=== PATIENT | male | born 1985 | race Asian ===

== ENCOUNTER 2024-09-30 15:45 | Inpatient (IN) | payer MEDICAID ==
[~2024-09-30] VITALS: Ht 175.3 cm; Wt 93.2 kg
--- NOTE | 2024-09-30 15:55 | ELECTROCARDIOGRAPH REPORT ---
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 Alexey Arizmendi Measurements Intervals Sullivan Rate: 106 P: 74 CT: 138 QRS: 57 QRSD: 88 T: 6 QT: 352 QTc: 468 Interpretive Statements Sinus tachycardia Consider left ventricular hypertrophy Electronically Signed On 10-08-2024 18:42:[address] Alexey Arizmendi Please click the below link to view image of tracing.
--- NOTE | 2024-09-30 16:19 | Physician Documentation ---
History of Present Illness ~ Chief Complaint: Multiple Medical Complaints Stated Complaint: "RENAL" ISSUE Time Seen by MD: 15:57 HPI The patient presents as a transfer from [facility]. He is a 39-year-old male, history of CHF, and chronic kidney disease, who p resented to the ER with 3 days of feeling generally unwell, nausea and vomiting, and progressively worsening shortness of breath. He was hypotensive, 220/140. Labs show acute on chronic renal failure, creatinine 11. GFR 5. Potassium 4.3. BNP 1037. Baseline creatinine is around 2. He was started on a nicardipine drip for hypertensive emergency. He was transferred here for further treatment. Here in the ED, he states he is feeling somewhat better. He denies any significant shortness of breath at this time. He denies any flank pain or abdominal pain. He is in agreement with the admission. Medication Reconciliation Allergies: Coded Allergies: No Known Allergies (Unverified , 09/30/24) Review of Systems Constitutional: Denies: fever Gastrointestinal: Denies: abdominal pain Physical Exam Vital Signs: Temperature: 98.9, Source: Oral, Heart Rate: 113, Respiratory Rate: 16, BP: 174/109, Pulse Oximetry: 94, Weight: 93.180 Oxygen Flow Rate: 0 Physical Exam General: This is a young man, sitting calmly in bed, not in distress HEENT: Atraumatic, oropharynx appears dry Heart: Mild tachycardic, appears regular Lungs: normal work of breathing, normal oxygen saturation on room air Abdomen: Soft, nondistended, nontender all quadrants Fax: No CVA tenderness to percussion Extremities: Warm and well-perfused, no significant pitting edema Neuro: Alert and oriented, does not appear confused Psychiatric: Calm and cooperative with exam Progress Results/Orders Results/Orders Orders - IVAN REED MD Chest,Single View (09/30/24 15:52) Monitor (09/30/24 15:52) Saline Lock (09/30/24 15:52) Oxygen (09/30/24 15:52) Hs Troponin I W Calculations (09/30/24 17:52) Hs Troponin I W Calculations (09/30/24 18:52) Page Hospitalist (09/30/24 16:20) Completed Orders - IVAN REED MD Chest,Single View (09/30/24 15:52) Cbc/Diff (09/30/24 15:52) BMP (09/30/24 15:52) PBNP (09/30/24 15:52) Electrocardiogram (09/30/24 15:52) Hs Troponin I W Calculations (09/30/24 15:52) Medications Received in ER Medications (Trade) Dose Ordered Sig/Parmjit Route PRN Reason Start Time Stop Time Status Last Admin Dose Admin Nicardipine/ Sodium Chloride 200 ml @ 25 mls/hr Q8H IV 09/30/24 17:10 09/30/24 17:24 25 MLS/HR Vital Signs 09/30/24 09/30/24 09/30/24 15:47 17:12 17:12 Temp 98.9 Pulse 113 105 Resp 16 21 21 B/P (MAP) 174/109 179/123 (141) Pulse Ox 94 95 O2 Flow Rate 0 0 Laboratory Tests Test 09/30/24 15:54 White Blood Count 10.3 Red Blood Count 4.11 L Hemoglobin 11.0 L Hematocrit 32.4 L Mean Corpuscular Volume 79.0 Mean Corpuscular Hemoglobin 26.7 L Mean Corpuscular Hemoglobin Concent 33.8 Red Cell Distribution Width 13.6 Platelet Count 254 Mean Platelet Volume 7.1 L Neutrophils (%) (Auto) 75.0 Lymphocytes (%) (Auto) 16.4 L Monocytes (%) (Auto) 5.7 Eosinophils (%) (Auto) 2.1 Basophils (%) (Auto) 0.8 Neutrophils # (Auto) 7.7 Lymphocytes # (Auto) 1.7 Monocytes # (Auto) 0.6 Eosinophils # (Auto) 0.2 Basophils # (Auto) 0.1 CBC Comment Sodium Level 138 Potassium Level 4.5 Chloride Level 102 Carbon Dioxide Level 17.2 L Anion Gap 19 H Blood Urea Nitrogen 74 H Creatinine 11.06 H Estimated GFR/1.73 m2 5 BUN/Creatinine Ratio 6.7 L Glucose Level 113 H Calcium Level 8.3 L Troponin I High Sensitivity 53 Pro-B-Type Natriuretic Peptide 91966 H Albumin 3.0 L Chemistry Comments Consults/PCP Consults/PCP : Additional Comment Consult: I spoke to the internal medicine service, for admission in the hospital. They feel he is appropriate for the medical service. Consult: I spoke to Dr. Cain, nephrology. He recommends kidney ultrasound, D5 wi th bicarb for hydration, admission. He will consult. Medical Decision Making Additional info obtained from: old records Findings I reviewed the paperwork from the outside hospital regarding his recent ER visit. Additional Comments The patient will be admitted to the medicine service for further treatment of his renal failure and hypertensive emergency. Nephrology team will consult. Departure Impression: Primary Impression: Renal failure Additional Impression: Hypertensive emergency Referrals: NO PRIMARY CARE PROVIDER (PCP) Signature Scribe Signature: na Attestation: IVAN Garcia MD Sep 30, 2024 16:19
[2024-09-30 16:30] LABS: BASOPHILS # (AUTO) 0.1 X10'3 (0-0.2); BASOPHILS % (AUTO) 0.8 % (0-1); EOSINOPHILS # (AUTO) 0.2 X10'3 (0-0.9); EOSINOPHILS % (AUTO) 2.1 % (0-6); HEMATOCRIT 32.4 % (42.0-52.0); LYMPHOCYTES # (AUTO) 1.7 X10'3 (1.1-4.8); LYMPHOCYTES % (AUTO) 16.4 % (21-51); MEAN CORPUSCULAR HEMOGLOBIN 26.7 PG (27.0-31.0); MEAN CORPUSCULAR HGB CONC 33.8 g/dL (33.0-36.5); MEAN PLATELET VOLUME 7.1 FL (7.4-10.4); MONOCYTES # (AUTO) 0.6 X10'3 (0-0.9); MONOCYTES % (AUTO) 5.7 % (2-12); NEUTROPHILS # (AUTO) 7.7 X10'3 (1.8-7.7); PLATELET COUNT 254 X10'3 (140-440); RED BLOOD COUNT 4.11 X10'6 (4.70-6.10); RED CELL DISTRIBUTION WIDTH 13.6 % (11.5-14.5); WHITE BLOOD COUNT 10.3 X10'3 (4.5-11.0)
[2024-09-30 16:56] LABS: ANION GAP 19 (8-16); BLOOD UREA NITROGEN 74 MG/DL (7-18); BUN/CREATININE RATIO 6.7 (10.0-20.0); CALCIUM 8.3 MG/DL (8.5-10.1); CHLORIDE 102 MMOL/L (99-107); CREATININE 11.06 MG/DL (0.60-1.10); GLUCOSE 113 MG/DL (70-104); POTASSIUM 4.5 MMOL/L (3.5-5.1); PRO BRAIN NATRIURETIC PEPTIDE 17282 PG/ML (0-125); SODIUM 138 MMOL/L (135-145); TOTAL CARBON DIOXIDE 17.2 MMOL/L (24-32); eCRCL 9 ML/MIN; eGFR 5 ML/MIN
[2024-09-30] MEDS ORDERED: normal saline 1000ml 1,000 ML IV SCH (17:10)
[2024-09-30] MEDS ORDERED: magnesium Cl slow-release 64mg tablet PO PRN (17:10)
[2024-09-30] MEDS ORDERED: potassium Cl 40MEQ/1/2NS 520ml 520 ML IV PRN (17:10)
[2024-09-30] MEDS ORDERED: potassium Cl 20 mEq SR tablet PO PRN ×2 (17:10)
[2024-09-30] MEDS ORDERED: ondansetron/PF 4mg/2ml inj IV PRN (17:10)
[2024-09-30] MEDS ORDERED: magnesium sulf-water 2g/50mL 50 ML IV PRN (17:10)
[2024-09-30] MEDS ORDERED: acetaminophen 325mg tablet PO PRN ×2 (17:10)
[2024-09-30] MEDS ORDERED: magnesium sulf-water 4G/100mL 100 ML IV PRN (17:10)
[2024-09-30] MEDS: niCARDipine-NS 40mg/200ml IVPB 200 ML IV SCH (17:24)
--- NOTE | 2024-09-30 18:14 | HISTORY AND PHYSICAL-Residence ---
History & Physical Providers to CC Resident Creating Document: KARANAMISHJESSICA RES ~ History of Present Illness Reason for Admit\\Complaint: edgardo on ckd, htn , chf History of Present Illness 39-year-old male with history of congestive heart failure, CKD, hypertension is transferred to the ED from [facility] for higher level of care and management for hypertension, EDGARDO on CKD and CHF. He presented to the ED at [facility] with chief complaints of worsening shortness of breath, weakness in the fingers and feet since the past three days. He has associated chills, vomiting and dizziness. Denies significant chest pains, diaphoresis, nasal congestion, expectoration, palpitations. He has been having the above symptoms (shortness of breath) for the past eight months. Eight months ago he was diagnosed to have pneumonia at [facility], later seen at [place] where he was diagnosed to have CHF and chronic kidney disease with "15% kidney function". He states that he has been taking Lasix 40 t.i.d. since then and has been transitioned to Lasix 20 daily since the last one month. He does swell up with significant edema in the bilateral lower extremity, states he has lost significant amount of weight with Lasix. He is able to make good amount of urine. He has a systems technologist in [place] and a primary care and ek, last visit to PCP with two months ago and has been informed about his CKD and recommended to see a rouge mixer, he has been awaiting appointment to see a rouge mixer for the last couple of months and finally after long weight he had an appointment scheduled for the end of September. He is also hypertensive and takes Coreg. Was also taking losartan, but was discontinued and he developed neck swelling. Stopped smoking six years ago, does not drink alcohol no recreational drug use. Had an angiogram done eight months ago probably secondary to heart failure and was clean. Allergies: Coded Allergies: No Known Allergies (Unverified , 09/30/24) Past Medical History Past Medical History Hypertension CKD CHF Past Surgical History Surgical History Comment Coronary Angiogram ROS ROS Reviewed in full. All negative except for pertinent positive HPI. Exam Vitals: Vital Signs Date Time Temp Pulse Resp B/P (MAP) Pulse Ox O2 Delivery O2 Flow Rate FiO2 09/30/24 17:24 104 173/127 09/30/24 17:12 21 09/30/24 17:12 95 0 09/30/24 15:47 98.9 General: General: Awake and Alert, no acute distress. Currently Saturating well on room air. HEENT: Conjunctiva pink, Sclera clear, Mucus Membranes moist. Neck: Supple without masses and tenderness. Resp: Unlabored. Bilateral basal fine crackles. Heart: Regular rhythm, normal S1 and S2, no rub, murmur or gallop. Abdomen: Abdomen distended and tight, normal bowel sounds x4. No guarding or rigidity. Extremities: Normal ROM, no swelling, nontender. No cyanosis,clubbing or edema. 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 Skin: Warm and Dry. Diagnostic Data Last Recorded Lab Results: 09/30/24 1554 09/30/24 1554 Advance Care Planning Advanced Care plannin - 30 Minutes Additional Plan 39-year-old male with history of congestive heart failure, CKD, hypertension is transferred to the ED from [facility] for higher level of care and management for hypertension, EDGARDO on CKD and CHF. He presented to the ED at [facility] with chief complaints of worsening shortness of breath, weakness in the fingers and feet since the past three days. EDGARDO on CKD, creatinine 11.06 (unknown baseline creatinine) Elevated anion gap metabolic acidosis BUN 74, creatinine 11.06, GFR 5, anion gap 19 Currently saturating well on room air Started bicarb drip at 100 mL/hour Follow up with urine spot studies and renal ultrasound Follow up with [facility] and Nephrology consulted, appreciate recommendations Hypertensive emergency Has been transferred from [place] with a nicardipine drip, continue drip for now Home blood pressure medication Coreg CHF unknown EF BNP 83957, likely secondary to EDGARDO EKG shows sinus tachycardia, no ST/T-wave changes. Possible Left ventricular hypertrophy. He is fine crackles bilaterally, mild edema in the bilateral hands and abdomen is distended and tight no lower extremity edema. He is currently in significant EDGARDO with metabolic acidosis continue bicarb drip for now Reassess fluid status in a.m. History of hypertension History of CKD Awaiting med rec Code Status: Full code DVT prophylaxis: Heparin Analgesia/sedation: None Line/tube: PIV GI prophylaxis: None Nutrition: Renal diet Prognosis: Guarded Disposition: Continue medical management. Patient looks clinically and hemodynamically stable at this time, considering significant EDGARDO and elevated anion gap acidosis he is at high-risk and if condition deteriorates overnight he will need to be transferred to the ICU. Jessica Julio MD. IM Resident PGY-2 Date of Service: Sep 30, 2024 Billing Provider: BREONNA BARTON MD Common Visit Codes: [id number] INP/OBS CARE (HIGH) Secondary Visit Codes: [id number] CARE PLAN 30 MINUTES JESSICA JULIO RES Sep 30, 2024 18:14 BREONNA BARTON MD Sep 30, 2024 18:42
[2024-09-30] MEDS: sodium bicarbonate (8.4%) inj. 100 MEQ in dextrose 5%-water 1,000 ML IV SCH (18:37)
[2024-09-30 19:10] LABS: C-REACTIVE PROTEIN 1.2 MG/DL (0.0-0.5); THYROID STIMULATING HORMONE 2.35 ulU/ml (0.34-4.50)
[2024-09-30 19:16] LABS: ABG BASE EXCESS -8.2 mmol/L (-2.0-3.0); ABG HCO3 16.4 mmol/L (21.0-28.0); ABG OXYGEN SATURATION 93.8 % (94.0-98.0); ABG PCO2 (T) 30.9 mmHg (35.0-48.0); ABG PH (T) 7.343 (7.350-7.450); ABG PO2 (T) 76.6 mmHg (83.0-108.0); ALLEN'S TEST POSITIVE; FCOHb 0.3 % (0.5-1.5); FHHb 6.2 % (0.0-5.0); FMetHb 0.1 % (0.0-1.5); FO2Hb 93.4 % (94.0-98.0); MODE ROOM AIR
[2024-09-30] MEDS ORDERED: FURO20TA4 PO (19:19)
[2024-09-30] MEDS ORDERED: LOSA25TA41 PO (19:19)
[2024-09-30] MEDS ORDERED: CARV25TA2 PO (19:19)
[2024-09-30 19:30] LABS: URINE AMPHETAMINE SCREEN NEGATIVE (Neg); URINE BARBITUATE SCREEN NEGATIVE (Neg); URINE BENZODIAZEPINES SCREEN NEGATIVE (Neg); URINE CANNABINOID SCREEN POSITIVE (Neg); URINE COCAINE SCREEN NEGATIVE (Neg); URINE METHADONE SCREEN NEGATIVE (Neg); URINE OPIATE SCREEN NEGATIVE (Neg); URINE PHENCYCLIDINE SCREEN NEGATIVE (Neg)
[2024-09-30] MEDS: heparin, porcine 5000 units/ml vial SQ SCH (20:00)
[2024-09-30 21:00] VITALS: BP 168/102; PULSE 115; RESP 22; TEMP 97.6; O2SAT 95
[2024-09-30 22:00] VITALS: BP_SYST 152; BP_SYST 162; BP_DIAS 102; BP_DIAS 103; PULSE 128; RESP 29; TEMP 97.6; O2SAT 96
[2024-09-30] MEDS: lisinopril 20mg tablet PO ONE (22:18)
[2024-09-30] MEDS: amLODIPine 5mg tablet PO ONE (22:18)
[2024-09-30 23:00] VITALS: BP_SYST 138; BP_SYST 162; BP_DIAS 102; BP_DIAS 98
[2024-09-30 23:12] VITALS: RESP 29; O2SAT 96
[2024-10-01] VITALS (23 sets, daily range): BP systolic 129–162; BP diastolic 92–110; PULSE 90–114; RESP 12–20; TEMP 97.4–98.3; O2SAT 92–99
[2024-10-01] MEDS: hydrALAZINE 20mg/ml inj. IV PRN (00:31)
[2024-10-01 06:06] LABS: BASOPHILS # (AUTO) 0.1 X10'3 (0-0.2); BASOPHILS % (AUTO) 0.8 % (0-1); EOSINOPHILS # (AUTO) 0.2 X10'3 (0-0.9); EOSINOPHILS % (AUTO) 2.4 % (0-6); HEMOGLOBIN 9.5 g/dl (14.0-17.9); LYMPHOCYTES # (AUTO) 1.8 X10'3 (1.1-4.8); LYMPHOCYTES % (AUTO) 19.3 % (21-51); MEAN CORPUSCULAR HEMOGLOBIN 27.1 PG (27.0-31.0); MEAN CORPUSCULAR HGB CONC 33.8 g/dL (33.0-36.5); MEAN CORPUSCULAR VOLUME 80.1 FL (78-98); MEAN PLATELET VOLUME 7.1 FL (7.4-10.4); MONOCYTES # (AUTO) 0.6 X10'3 (0-0.9); MONOCYTES % (AUTO) 6.2 % (2-12); NEUTROPHILS # (AUTO) 6.7 X10'3 (1.8-7.7); NEUTROPHILS % (AUTO) 71.3 % (42-75); PLATELET COUNT 238 X10'3 (140-440); RED CELL DISTRIBUTION WIDTH 13.2 % (11.5-14.5); WHITE BLOOD COUNT 9.4 X10'3 (4.5-11.0)
[2024-10-01 06:21] LABS: ALANINE AMINOTRANSFERASE 14 U/L (12-78); ALBUMIN 2.6 G/DL (3.4-5.0); ALBUMIN/GLOBULIN RATIO 0.8 (1.1-1.5); ALKALINE PHOSPHATASE 65 IU/L (46-116); ANION GAP 16 (8-16); ASPARTATE AMINO TRANSFERASE 12 U/L (10-37); BILIRUBIN,TOTAL 0.4 MG/DL (0.1-1.0); BLOOD UREA NITROGEN 76 MG/DL (7-18); BUN/CREATININE RATIO 6.8 (10.0-20.0); CALCIUM 7.8 MG/DL (8.5-10.1); CHLORIDE 102 MMOL/L (99-107); CREATININE 11.23 MG/DL (0.60-1.10); GLUCOSE 113 MG/DL (70-104); POTASSIUM 4.1 MMOL/L (3.5-5.1); SODIUM 140 MMOL/L (135-145); TOTAL CARBON DIOXIDE 21.9 MMOL/L (24-32); eCRCL 9 ML/MIN; eGFR 5 ML/MIN
[2024-10-01] MEDS: amLODIPine 5mg tablet PO SCH (08:24)
[2024-10-01] MEDS: lisinopril 20mg tablet PO SCH (08:24)
--- NOTE | 2024-10-01 11:12 | RADIOLOGY REPORT ---
EXAM: DI CHEST,SINGLE VIEW HISTORY: CP COMPARISON: None TECHNIQUE: Portable upright AP view of the chest was performed. FINDINGS: No pneumothorax, consolidative infiltrates, or pulmonary edema. The heart is enlarged. IMPRESSION: Cardiomegaly without evidence of acute intrathoracic process.
--- NOTE | 2024-10-01 11:13 | RADIOLOGY REPORT ---
US ULTRASOUND KIDNEY NON VASC HISTORY: EDGARDO on CKD COMPARISON: None TECHNIQUE: Transverse and longitudinal grayscale and color doppler images were obtained of the kidney s and bladder. FINDINGS: Right kidney: Size: 11.6 cm Cortical thickness: Normal Echogenicity: increased Stones: None Masses: None Hydronephrosis: None Ureters: Not well visualized. Other: None Left kidney: Size: 10.5 cm Cortical thickness: Normal Echogenicity: increased Stones: None Masses: None Hydronephrosis: None Ureters: Not well visualized. Other: None Bladder: Normal Other: None. IMPRESSION: Echogenic renal corticies can be seen with medial renal disease.
--- NOTE | 2024-10-01 11:22 | CONSULTATION REPORT - RESIDENT ---
Consult Providers to CC Resident Creating Document: MARJORIE LANGSTON RES History of Present Illness Reason for Admit\Complaint: EDGARDO on CKD History of Present Illness This is a 39-year-old male with a history of CKD, CHF, hypertension was transferred to [place] from [facility] for uncontrolled hypotension, EDGARDO. He initially presented to [facility] for shortness of breadth and fatigue for three days. He reported that the shortness of breadth gets worse on lying down. He also had associated edema of bilateral upper extremities and left lower extremity which now improved. He mentioned that he was out of his medications for the last three days because of change in pharmacy. He 1st came to now about worsening kidney function eight and half months ago. At that time he was admitted in [facility] for pneumonia, was treated with antibiotics and sent back home, as he continued to feel worse he went to [place] where he was diagnosed him with heart failure. He was seeing stack supervisor at [facility]. He got an angiogram done in January 2024, which was apparently clean. Denies any decreased frequency of urination, (in fact has increased frequency because he is on Lasix.), urinary stream normal, no history of BPH, no history of kidney stones. He was taking NSAIDs, used them for about four months for headaches, used about 3-5 ibuprofen per month. He is not sure if he was exposed to contrast previously. He was referred to forest logistics manager by his PCP for worsening kidney function and he has an appointment at the end of this month. His GFR in July 2023, at the time and he was in [facility] was around 46. Allergies: Coded Allergies: No Known Allergies (Unverified , 09/30/24) Home Medications Home Medications Active Reported Losartan Potassium 25 Mg Tablet 1 Tab PO DAILY Furosemide 20 Mg Tablet 1 Tab PO DAILY Carvedilol 25 Mg Tablet 1 Tab PO BID Past Medical History Past Medical History CKD Hypotension CHF Past Surgical History Surgical History Comment Angiogram in January 2024 Family History Family History: FH: PR (myocardial infarction) MOTHER Past Social History Social History Comment He has a history of smoking, quit six months ago previously he smoked for about 30 years about one pack a day Denies any history of alcohol use Denies any history of drug use Lives with his two kids Works at [employer] Exam Vitals: Vital Signs Date Time Temp Pulse Resp B/P (MAP) Pulse Ox O2 Delivery O2 Flow Rate FiO2 6/20/25 08:41 19 98 Room Air 10/01/24 08:24 101 10/01/24 06:00 98.2 129/97 (108) 09/30/24 17:12 0 General: General: Awake and Alert, no acute distress. Currently Saturating well on room air. HEENT: Conjunctiva pink, Sclera clear, Mucus Membranes moist. Neck: Supple without masses and tenderness. Resp: Unlabored. Bilateral breath sounds are clear. Heart: Regular rhythm, normal S1 and S2, no rub, murmur or gallop. Abdomen: Abdomen soft, normal bowel sounds x4. No guarding or rigidity. Extremities: Normal ROM, no swelling, nontender. No cyanosis,clubbing or edema. 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 Skin: Warm and Dry. Diagnostic Data Last Recorded Lab Results: 10/01/24 0516 10/01/24 0516 Additional Plan Assessment This is a 39-year-old male with a history of hypertension, CKD, CHF came to the hospital for shortness of breadth. Abnormal kidney function was 1st noticed eight months ago. GFR in August 05 was 46. He was consulted for EDGARDO on CKD. Plan EDGARDO on ESRD, new dialysis s/p TDC placement Possible glomerulonephritis Hyperphosphatemia Creatinine 11.23, BUN 76, BUN/creatinine-6.8 Potassium normal Phosphorus 9.0, calcium 7.8, PTH pending-started on PhosLo two capsules t.i.d. Urine analysis positive for> 300 protein, moderate occult blood, 3-10 RBC in urine, rare eosinophils. U urine sodium 56, FENA-6.3 EDILSON, C Anca, p-ANCA, ASO C3, C4, HIV, hepatitis B, IgA, IFA GBM antibody, cryoglobulin, ESR pending Renal ultrasound showed increased echogenicity bilateral Renal vascular ultrasound ordered. TDC catheter was placed today by Dr. Daley. Patient we will get dialysis today, on Friday and Friday. Expecting the patient to continue on dialysis, ultimately might need a peritoneal dialysis as the patient lives in [place]. Patient might need a kidney biopsy in the future and ultimately a kidney transplant. High anion gap metabolic acidosis At the time of presentation patient's bicarb was 17.9 with an anion gap of 19, pH was 7.3, was started on bicarb drip, bicarb improved to 21.9, anion gap closed, bicarb drip was discontinued. Hypertension Patient was transferred here on nicardipine drip, now discontinued Currently blood pressure is in the normal range Patient is on lisinopril 20 mg daily and amlodipine 10 mg daily and hydralazine p.r.n. CHF, unknown ejection fraction ProBNP [place], [address] Follow up with the echo Code status: Full code DVT prophylaxis: Heparin Diet: Renal diet Marjorie Langston M.D PGY1 Attending NOte: patient seen and examined. care plan reviewed with resident. agree with above. work up initiated for the hematuria and proteinuria. plan renal biopsy as outpatient if qualified. renal US. HD today. outpatient dialysis to be initiated. Bharath Castillo MD Date of Service: Oct 01, 2024 Billing Provider: BHARATH CASTILLO MD, PRAVAHIKA, RES Oct 01, 2024 11:22 BHARATH CASTILLO MD Oct 01, 2024 17:08
[2024-10-01] MEDS: calcium acetate 667mg (PhosLO) capsule PO SCH ×2 (12:07→17:12)
[2024-10-01 12:31] LABS: HEMOGLOBIN A1C 5.8 % (4.5-6.2)
[2024-10-01 12:37] LABS: BILIRUBIN,URINE NEGATIVE (Neg); CLARITY,URINE CLEAR (Clear); COLOR,URINE YELLOW (Yellow); GLUCOSE, URINE 250 mg/dl (Neg); KETONES,URINE NEGATIVE (Neg); LEUKOCYTE ESTERASE ,URINE NEGATIVE (Neg); NITRITES, URINE NEGATIVE (Neg); OCCULT BLOOD,URINE MODERATE (Neg); PROTEIN,URINE >=300 mg/dl (Neg); UROBILINOGEN,URINE 0.2 E.U/dL (0.2-1.0)
[2024-10-01 12:49] LABS: UA COLLECTION TYPE CLN CATCH MIDSTREAM
[2024-10-01 12:50] LABS: WBC,URINE 0-4 /HPF (0-4)
[2024-10-01 12:51] LABS: BACTERIA,URINE NONE SEEN /HPF (Neg); MUCUS STRANDS NONE SEEN /LPF (Neg); SQUAMOUS EPITHELIAL CELL,UR NONE SEEN /LPF (FEW)
[2024-10-01 13:20] LABS: TOTAL PROTEIN,URINE RANDOM 707.9 MG/DL
[2024-10-01] MEDS ORDERED: albumin (human) 25% 100ml IV 100 ML IV PRN (13:20)
[2024-10-01] MEDS ORDERED: heparin 1,000unit/ml 10ml vial 10 ML ONE (13:28)
[2024-10-01 13:34] LABS: HIV ANTIBODY 1&2 RAPID NON-REACTIVE (Neg)
--- NOTE | 2024-10-01 13:57 | PROGRESS NOTE- Residence ---
Progress Note - Resident Providers to CC Resident Creating Document: JESSICA JULIO RES ~ Antibiotic Timeout Antibiotic Ordered?: No Subjective Patient seen and examined at bedside. He is able to make urine. No new concerns or complaints. We will get records from his hospital admission at [facility] eight months ago to get an idea about his baseline labs. Objective Vital Signs Date Time Temp Pulse Resp B/P (MAP) Pulse Ox O2 Delivery O2 Flow Rate FiO2 10/01/24 11:00 97.4 95 13 132/92 (105) 98 Room Air 09/30/24 17:12 0 Result Diagram: 10/01/24 0516 10/01/24 0516 General: Awake and Alert, no acute distress. Currently Saturating well on room air. HEENT: Conjunctiva pink, Sclera clear, Mucus Membranes moist. Neck: Supple without masses and tenderness. Resp: Unlabored. Bilateral basal fine crackles. Heart: Regular rhythm, normal S1 and S2, no rub, murmur or gallop. Abdomen: Abdomen distended and tight, normal bowel sounds x4. No guarding or rigidity. Extremities: Normal ROM, no swelling, nontender. No cyanosis,clubbing or edema. 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 Skin: Warm and Dry. Assessment Assessment 39-year-old male with history of congestive heart failure, CKD, hypertension is transferred to the ED from [facility] for higher level of care and management for hypertension, EDGARDO on CKD and CHF. He presented to the ED at [facility] with chief complaints of worsening shortness of breath, weakness in the fingers and feet since the past three days. Plan Plan EDGARDO on CKD, creatinine 11.06 (unknown baseline creatinine) Elevated anion gap metabolic acidosis Hyperphosphatemia BUN 74, creatinine 11.06, GFR 5, anion gap 19 Currently saturating well on room air Started bicarb drip at 100 mL/hour Follow up with urine spot studies and renal ultrasound Follow up with [facility] and Nephrology consulted, appreciate recommendations 10/01/2024 Renal ultrasound echogenic renal cortices with mild renal disease. Echo EF 50-55%, RVSP 51 Creatinine 11.[address] Daley for TDC He will be started on hemodialysis soon REVIEW OF RECORDS FROM [place] Looks like he has been to [facility] multiple times in the last one year (May 2023, July 2023, November 2023, January 2024) for complaints of hypertension, shortness of breath, CHF and EDGARDO. His creatinine at that time was in the range 1.9-2.3-2.1-2.2 -2.5. In January 2024 angiogram was done, and later developed a small hematoma in the groin, he had the CTA of the abdomen which showed a small hematoma at the right common femoral artery. No pseudoaneurysm or hemorrhage. Creatinine at this time was around 2.1-2.2. Hypertensive emergency Has been transferred from [facility] with a nicardipine drip, continue drip for now Home blood pressure medication Coreg 10/01/2024 Nicardipine drip discontinued Transitioned to amlodipine 10 and lisinopril 20 overnight BP stable so far, we will continue to monitor Resume Home medication Coreg 25 p.o. b.i.d. and losartan 25 p.o. daily, DC amlodipine and lisinopril Chronic CHF preserved EF BNP 43851, likely secondary to EDGARDO EKG shows sinus tachycardia, no ST/T-wave changes. Possible Left ventricular hypertrophy. He is fine crackles bilaterally, mild edema in the bilateral hands and abdomen is distended and tight no lower extremity edema. He is currently in significant EDGARDO with metabolic acidosis continue bicarb drip for now Reassess fluid status in a.m. 10/01/2024 EF is preserved 50-55%, RVSP 51 No signs of fluid overload Fluids per communications lead recommendations History of hypertension History of CKD Code Status: Full code DVT prophylaxis: Heparin Analgesia/sedation: None Line/tube: PIV GI prophylaxis: None Nutrition: Renal diet Prognosis: Guarded Disposition: Continue medical management. Jessica Julio MD. IM Resident PGY-2 Addendum EDGARDO 2 to ATN? Date of Service: Oct 01, 2024 Billing Provider: KIA MULLIGAN MD Common Visit Codes: [id number] INP/OBS CARE(HIGH) JESSICA JULIO, RES Oct 01, 2024 13:57 KIA MULLIGAN MD Oct 01, 2024 21:22
--- NOTE | 2024-10-01 14:03 | PROGRESS NOTE ---
Progress Note - Angio Providers to CC ~ Angio Progress Note: Risks benefits alt of TDC d/w pt and informed consent disclosed. Will proceed with possible fentanyl only and local Iidocaine. Mal 2 ASA 2. IVAN HINOJOSA MD Oct 01, 2024 14:03
--- NOTE | 2024-10-01 14:59 | PROGRESS NOTE ---
Progress Note - Angio Providers to CC ~ Angio Progress Note: S/P RIJ TDC may use now routine catheter care. Dictated. EBL less than 5cc. Complications none. IVAN HINOJOSA MD Oct 01, 2024 14:59
--- NOTE | 2024-10-01 15:31 | RADIOLOGY REPORT ---
PROCEDURE: Right internal jugular vein Tunneled dialysis catheter placement. HISTORY: Renal failure MEDICATIONS: Patient did not require IV sedation. 10 mL of 1% Lidocaine. FLUORO TIME: 0.7 minutes AIR KERMA: 26 mGy ESTIMATED BLOOD LOSS: <5 mL TECHNIQUE: The right neck and chest were prepped and draped in sterile fashion. Local anesthesia was applied. The internal jugular vein was punctured under ultrasound guidance. A 5 Polish dilator was placed. A tunnel was created in the soft tissues of the right anterior chest wall. A 23 cm tip to cuff bio flow Duramax dialysis catheter was pulled through the tunnel. A peel-away sheath was placed in the IJ. The catheter was placed through the peel-away, and the peel-away was removed. The venotomy incision was closed with 3-0 Vicryl. The catheter was secured at the exit site with 0- silk. Both lumens were loaded with heparin. FINDINGS: The catheter tip is in the right atrium/SVC junction and there is no ectopy. IMPRESSION: Tunneled dialysis catheter placement. May use now, routine catheter care.
--- NOTE | 2024-10-01 17:44 | VASCULAR REPORT ---
Exam: VASC VL RENAL Date: 10/01/2024 03:58 PM Clinical History: Uncontrolled hypertension Comparison: None Findings: Aortic velocity 96 cm/sec This is a very limited examination due to habitus. The renal arteries were not well characterized. Wi thin these limitations: Right renal artery peak systolic velocity of 57 cm/sec. Resistive index 0.6. Renal aortic ratio 0.6 Left renal artery peak systolic velocity 51 cm/sec. Resistive index 0.8. Renal aortic ratio 0.5. The bilateral kidneys are echogenic in appearance. The right kidney measures 11.4 cm. Left kidney me asures 11.3 cm. No hydronephrosis seen. IMPRESSION: Very limited evaluation. Slightly elevated left renal artery resistive index could represent renal ar neena stenosis. Recommend CT angiogram of the abdomen to further characterize Echogenic kidneys suggesting medical renal disease
[2024-10-01] MEDS: heparin 1,000unit/ml 10ml vial 10 ML IV ONE (18:38)
[2024-10-01] MEDS: heparin 1,000 units/ml 10ml inj IV ONE (18:38)
[2024-10-01] MEDS: heparin 1,000 units/ml 10ml inj HE ONE ×2 (18:39)
[2024-10-01] MEDS: mannitol 12.5gm/50mL VIAL IV ONE (18:39)
[2024-10-01] MEDS: EPOETIN ALFA-EPBX 20,000 UNIT/ML 1 ML MDV IV ONE (18:40)
--- NOTE | 2024-10-01 18:55 | CARDIOLOGY REPORT ---
APPROVED REPORT EXAM: Comprehensive 2D, Doppler, and color-flow Echocardiogram. Patient Location: [facility] Blood Pressure: 150/96 mmHg Heart Rate: 97 bpm Rhythm: NSR Indications Hypertension CHF SOB Pro BNP 67375 Occ Ther in [place], [place], Dr Barker No previous echo 2D Dimensions LA Diam5.1 cm IVSd 1.2 (0.7-1.1cm) LVDd 6.0 cm PWd 1.3 (0.7-1.1cm) IVSs 1.6 (0.8-1.2cm) LVDs 4.3 (2.5-4.0cm) Aortic Root(2D) 3.3 cm PWs 1.6 (0.8-1.2cm) LVOT Diameter 2.06 (1.8-2.4cm) LVEF(%) 53.0 (>50%) Ao Asc Diam.3.19 cmIVC 21.96 mm FS (%) 27.8 % SV 93.9 ml CO 9.1 L/min M-Mode Dimensions MV EPSS 1.1 (<0.5cm) Aortic Valve AoV Peak Reji. 163.4 cm/s AoV VTI 26.0 cm AO Peak GR. 10.7 mmHg AO Mean GR. 6 mmHg LVOT VTI 22.74 cm LVOT Peak Reji. 128.1 cm/s OG(VTI)/BSA 2.92 cm2/m2 OG (VTI) 2.92 cm2 Mitral Valve MV E Velocity 115.9 cm/s MV Peak Gr. 6 mmHg MV DECEL TIME 116 ms MV A Velocity 93.4 cm/s MV PHT 52 ms E/A Ratio 1.2 MVA (PHT) 4.23 cm2 MR CFkq336.0 cm/s MV XGyw332.5 cm/sMR PG Wgv369.2 mmHg TDI Medial E' P. V 5.23 cm/s E/Medial E' 22.2 Tricuspid Valve TR P. Velocity 320 cm/s RAP ESTIMATE 10 mmHg TR Peak Gr. 41 mmHg RVSP 51 mmHg Pulmonary Vein S1 Velocity 70.1 cm/s D2 Velocity 87.2 cm/s PVa Yqivvocc92.4 cm/s PVa Xbvbsfet30 msec LEFT VENTRICLE LV is mildly dilated with mild concentric hypertrophy. Overall systolic function is low normal. LVEF is 50-55%. RIGHT VENTRICLE RV appears mildly dilated with normal contractility. RVSP is estimated at 51 mmHG. ATRIA Left atrium is moderately dilated. AORTIC VALVE Trileaflet AV appears sclerotic without stenosis. Trace insufficiency. MITRAL VALVE MV is thickened with no annular calcification or stenosis. Moderate mitral regurgitation. TRICUSPID VALVE The tricuspid valve is normal in structure. Mild tricuspid regurgitation. PULMONIC VALVE The pulmonary valve is normal in structure. Trace pulmonic regurgitation. GREAT VESSELS The aortic root is normal in size. The ascending aorta is normal in size. The IVC is normal in size a nd collapses >50% with inspiration. PERICARDIUM There is no pericardial effusion. Other Information Study Quality: Adequate Conclusion LV is mildly dilated with mild concentric hypertrophy. Overall systolic function is low normal. LVEF is 50-55%. RV appears mildly dilated with normal contractility. RVSP is estimated at 51 mmHG. Left atrium is moderately dilated. Trileaflet AV appears sclerotic without stenosis. Trace insufficiency. MV is thickened with no annular calcification or stenosis. Moderate mitral regurgitation. The tricuspid valve is normal in structure. Mild tricuspid regurgitation. The pulmonary valve is normal in structure. Trace pulmonic regurgitation. There is no pericardial effusion.
[2024-10-01] MEDS: carVEDilol 12.5mg tablet PO SCH (21:06)
[2024-10-02] VITALS (19 sets, daily range): BP systolic 92–121; BP diastolic 50–99; PULSE 82–104; RESP 11–22; TEMP 96.5–98; O2SAT 92–98
[2024-10-02 06:38] LABS: BASOPHILS # (AUTO) 0.1 X10'3 (0-0.2); BASOPHILS % (AUTO) 0.7 % (0-1); EOSINOPHILS # (AUTO) 0.2 X10'3 (0-0.9); EOSINOPHILS % (AUTO) 1.9 % (0-6); HEMATOCRIT 29.5 % (42.0-52.0); HEMOGLOBIN 9.8 g/dl (14.0-17.9); LYMPHOCYTES # (AUTO) 1.7 X10'3 (1.1-4.8); LYMPHOCYTES % (AUTO) 19.3 % (21-51); MEAN CORPUSCULAR HEMOGLOBIN 26.8 PG (27.0-31.0); MEAN CORPUSCULAR HGB CONC 33.2 g/dL (33.0-36.5); MEAN CORPUSCULAR VOLUME 80.7 FL (78-98); MEAN PLATELET VOLUME 6.8 FL (7.4-10.4); MONOCYTES # (AUTO) 0.6 X10'3 (0-0.9); MONOCYTES % (AUTO) 7.2 % (2-12); NEUTROPHILS # (AUTO) 6.3 X10'3 (1.8-7.7); NEUTROPHILS % (AUTO) 70.9 % (42-75); PLATELET COUNT 239 X10'3 (140-440); RED BLOOD COUNT 3.65 X10'6 (4.70-6.10); RED CELL DISTRIBUTION WIDTH 13.6 % (11.5-14.5); WHITE BLOOD COUNT 8.9 X10'3 (4.5-11.0)
[2024-10-02] MEDS ORDERED: albumin (human) 25% 100ml IV 100 ML IV PRN (07:00)
[2024-10-02] MEDS: losartan 25mg tablet PO SCH (07:05)
[2024-10-02 07:07] LABS: ALANINE AMINOTRANSFERASE 16 U/L (12-78); ALBUMIN 2.8 G/DL (3.4-5.0); ALBUMIN/GLOBULIN RATIO 0.8 (1.1-1.5); ALKALINE PHOSPHATASE 64 IU/L (46-116); ANION GAP 10 (8-16); ASPARTATE AMINO TRANSFERASE 13 U/L (10-37); BILIRUBIN,TOTAL 0.4 MG/DL (0.1-1.0); BLOOD UREA NITROGEN 57 MG/DL (7-18); BUN/CREATININE RATIO 6.1 (10.0-20.0); CALCIUM 8.2 MG/DL (8.5-10.1); CHLORIDE 100 MMOL/L (99-107); CREATININE 9.39 MG/DL (0.60-1.10); FREE T4 (FREE THYROXINE) 1.05 NG/DL (0.73-1.40); GLUCOSE 113 MG/DL (70-104); LACTATE DEHYDROGENASE 197 U/L (85-227); PHOSPHORUS 7.6 MG/DL (2.3-4.5); POTASSIUM 4.6 MMOL/L (3.5-5.1); SODIUM 136 MMOL/L (135-145); THYROID STIMULATING HORMONE 1.55 ulU/ml (0.34-4.50); TOTAL CARBON DIOXIDE 26.2 MMOL/L (24-32); TOTAL PROTEIN 6.5 G/DL (6.4-8.2); eCRCL 10 ML/MIN; eGFR 6 ML/MIN
[2024-10-02 08:14] LABS: COMPLEMENT C3, SERUM 134 mg/dL (82-167); COMPLEMENT C4, SERUM 31 mg/dL (12-38)
--- NOTE | 2024-10-02 11:10 | PROGRESS NOTE- Residence ---
Progress Note - Resident Providers to CC Resident Creating Document: JESSICA JULIO RES ~ Antibiotic Timeout Antibiotic Ordered?: No Subjective Patient seen and examined at bedside. He had his first HD yesterday, HD today and stevenson as well. No concerns or complaints at this time. Objective Vital Signs Date Time Temp Pulse Resp B/P (MAP) Pulse Ox O2 Delivery O2 Flow Rate FiO2 10/02/24 08:00 20 96 Room Air 10/02/24 06:30 86 10/02/24 06:00 97.9 95/50 (65) 09/30/24 17:12 0 Result Diagram: 10/02/2462110/02/24 06 General: Awake and Alert, no acute distress. Currently Saturating well on room air. HEENT: Conjunctiva pink, Sclera clear, Mucus Membranes moist. Neck: Supple without masses and tenderness. Chest: Right-sided TDC in place. Resp: Unlabored. Bilateral basal fine crackles. Heart: Regular rhythm, normal S1 and S2, no rub, murmur or gallop. Abdomen: Abdomen distended and tight, normal bowel sounds x4. No guarding or rigidity. Extremities: Normal ROM, no swelling, nontender. No cyanosis,clubbing or edema. IMAGING TECHNICIAN: No gross motor or sensory abnormalities. Skin: Warm and Dry. Assessment Assessment 39-year-old male with history of congestive heart failure, CKD, hypertension is transferred to the ED from [facility] for higher level of care and management for hypertension, EDGARDO on CKD and CHF. He presented to the ED at [place] with chief complaints of worsening shortness of breath, weakness in the fingers and feet since the past three days. Plan Plan EDGARDO on CKD likely secondary to ATN, creatinine 11.06 (creatinine range in 2023: 1.9-2.3-2.1-2.2 -2.5) Elevated anion gap metabolic acidosis Hyperphosphatemia BUN 74, creatinine 11.06, GFR 5, anion gap 19 Currently saturating well on room air Started bicarb drip at 100 mL/hour Follow up with urine spot studies and renal ultrasound Follow up with [facility] and Nephrology consulted, appreciate recommendations 10/01/2024 Renal ultrasound echogenic renal cortices with mild renal disease. Echo EF 50-55%, RVSP 51 Creatinine 11.[address] Daley for TDC He will be started on hemodialysis soon REVIEW OF RECORDS FROM [place] Looks like he has been to [facility] multiple times in the last one year (May 2023, July 2023, November 2023, January 2024) for complaints of hypertension, shortness of breath, CHF and EDGARDO. His creatinine at that time was in the range 1.9-2.3-2.1-2.2 -2.5. In January 2024 angiogram was done, and later developed a small hematoma in the groin, he had the CTA of the abdomen which showed a small hematoma at the right common femoral artery. No pseudoaneurysm or hemorrhage. Creatinine at this time was around 2.1-2.2. 10/02/2024 1st episode of hemodialysis on 10/01/2024 Going to be dialyzed today and tomorrow Urinalysis shows findings positive for proteinuria and hematuria, possibility of underlying nephritic syndrome, awaiting serologic study results Doppler kidneys: Slightly elevated left renal artery resistive index could represent renal artery stenosis, recommended CT angio of the abdomen, cannot be done at this time with his acute kidney injury Nephrology is also recommending outpatient kidney biopsy Hypertensive emergency POA, currently having soft blood pressures Has been transferred from [place] with a nicardipine drip, continue drip for now Home blood pressure medication Coreg 10/01/2024 Nicardipine drip discontinued Transitioned to amlodipine 10 and lisinopril 20 overnight BP stable so far, we will continue to monitor Resume Home medication Coreg 25 p.o. b.i.d. and losartan 25 p.o. daily, DC amlodipine and lisinopril 10/02/2024 Blood pressures have been soft, morning dose of Coreg and losartan held, if BP continues to remain soft can decrease/DC the dose of Coreg to 6.25 BID Chronic CHF preserved EF BNP 99362, likely secondary to EDGARDO EKG shows sinus tachycardia, no ST/T-wave changes. Possible Left ventricular hypertrophy. He is fine crackles bilaterally, mild edema in the bilateral hands and abdomen is distended and tight no lower extremity edema. He is currently in significant EDGARDO with metabolic acidosis continue bicarb drip for now Reassess fluid status in a.m. 10/02/2024 EF is preserved 50-55%, RVSP 51 No signs of fluid overload Fluids per mortgage loan officer originator recommendations DC bicarb drip History of hypertension History of CKD Code Status: Full code DVT prophylaxis: Heparin Analgesia/sedation: None Line/tube: PIV GI prophylaxis: None Nutrition: Renal diet Prognosis: Guarded Disposition: Continue medical management. HD today and [facility]ev[facility]. Jessica Julio MD. IM Resident PGY-2 Date of Service: Oct 02, 2024 Billing Provider: KIA MULLIGAN MD Common Visit Codes: [id number] INP/OBS CARE(HIGH) JESSICA JULIO, RES Oct 02, 2024 11:10 KIA MULLIGAN MD Oct 03, 2024 09:39
--- NOTE | 2024-10-02 15:46 | PROGRESS NOTE ---
Progress Note Dictate Providers to CC ~ Central Line/PICC still needed: Yes Central Line/PICC Necessity: Req HD/Plasmapheresis [facility] Indications Met/Not Met: F/C Indications Not Met Antibiotic Ordered?: N/A Subjective Subjective The patient underwent first HD yesterday and tolerated well. 2nd HD today. work up for microscopic hematuria and proteinuria. Objective Vitals Vital Signs Date Time Temp Pulse Resp B/P (MAP) Pulse Ox O2 Delivery O2 Flow Rate FiO2 10/02/24 11:00 97.3 85 19 121/71 (88) 98 Room Air 09/30/24 17:12 0 Lab Results: 10/02/24 0622 10/02/24 0622 Objective Vital Signs: As above General: Normal body habitus, no acute distress. Skin: No rashes, lumps, ulcers, blisters, purpura or petechiae HEENT: Anicteric sclera, DALJIT Neck: Supple and nontender without enlargement of the thyroid, or lymphadenopathy. Chest: Normal size and shape, no tenderness, CTA bilaterally Heart: Regular. No jugular venous distention, S1 and S2 heard , no gallop Abdomen: Soft and non tender no organomegaly,BS+ Extremities: No pedal edema Neuro: Nonfocal. Advance Care Planning Advanced Care plannin - 30 Minutes Problem\Assessment\Plan Problems/Diagnosis: (1) EDGARDO (acute kidney injury) Assessment & Plan: This appears mostly chronic as it has been dating back by a year atleast according to patient with eGFR said to be 15 then. HD started yesterday and will continue doing it today. Outpatient dialysis placement pending. (2) ESRD (end stage renal disease) Assessment & Plan: discussed with him about renal diet in general. Needs dietitian consult.fluid restriction to 1.2 liters per day. rule out any vasculitis. serology tests pending. (3) Hypertension Additional Plan stable BP. Sepsis Screening Skin Color: Normal ANNEL CASTILLO MD Oct 02, 2024 15:46
[2024-10-02] MEDS: heparin 1,000unit/ml 10ml vial 10 ML IV ONE (17:17)
[2024-10-02] MEDS: heparin 1,000 units/ml 10ml inj IV ONE (17:17)
[2024-10-02] MEDS: heparin 1,000 units/ml 10ml inj HE ONE ×2 (17:18)
[2024-10-02] MEDS: EPOETIN ALFA-EPBX 20,000 UNIT/ML 1 ML MDV IV ONE (17:19)
[2024-10-02] MEDS: mannitol 12.5gm/50mL VIAL IV ONE (18:20)
[2024-10-03 02:00] VITALS: BP 100/66; PULSE 96; RESP 14; TEMP 98.1; O2SAT 100
[2024-10-03 06:00] VITALS: BP 114/72; PULSE 95; RESP 18; TEMP 98.1; O2SAT 98
[2024-10-03 06:54] LABS: BASOPHILS # (AUTO) 0.1 X10'3 (0-0.2); BASOPHILS % (AUTO) 0.7 % (0-1); EOSINOPHILS # (AUTO) 0.2 X10'3 (0-0.9); EOSINOPHILS % (AUTO) 1.8 % (0-6); HEMOGLOBIN 10.4 g/dl (14.0-17.9); LYMPHOCYTES # (AUTO) 2.7 X10'3 (1.1-4.8); LYMPHOCYTES % (AUTO) 22.6 % (21-51); MEAN CORPUSCULAR HEMOGLOBIN 26.8 PG (27.0-31.0); MEAN CORPUSCULAR HGB CONC 33.5 g/dL (33.0-36.5); MEAN PLATELET VOLUME 7.2 FL (7.4-10.4); MONOCYTES % (AUTO) 8.6 % (2-12); NEUTROPHILS % (AUTO) 66.3 % (42-75); PLATELET COUNT 268 X10'3 (140-440); RED BLOOD COUNT 3.87 X10'6 (4.70-6.10); WHITE BLOOD COUNT 12.1 X10'3 (4.5-11.0)
[2024-10-03 07:19] LABS: ALANINE AMINOTRANSFERASE 15 U/L (12-78); ALBUMIN/GLOBULIN RATIO 0.7 (1.1-1.5); ALKALINE PHOSPHATASE 70 IU/L (46-116); ANION GAP 15 (8-16); ASPARTATE AMINO TRANSFERASE 16 U/L (10-37); BILIRUBIN,TOTAL 0.4 MG/DL (0.1-1.0); BLOOD UREA NITROGEN 41 MG/DL (7-18); BUN/CREATININE RATIO 4.9 (10.0-20.0); CALCIUM 8.8 MG/DL (8.5-10.1); CHLORIDE 97 MMOL/L (99-107); CREATININE 8.36 MG/DL (0.60-1.10); GLUCOSE 102 MG/DL (70-104); PHOSPHORUS 7.2 MG/DL (2.3-4.5); POTASSIUM 4.4 MMOL/L (3.5-5.1); SODIUM 135 MMOL/L (135-145); TOTAL CARBON DIOXIDE 23.3 MMOL/L (24-32); TOTAL PROTEIN 7.2 G/DL (6.4-8.2); eCRCL 12 ML/MIN; eGFR 7 ML/MIN
[2024-10-03 08:00] VITALS: RESP 14; O2SAT 96
[2024-10-03 08:13] LABS: ANTISTREPTOLYSIN O AB <20.0 IU/mL (0.0-200.0); COMPLEMENT C3, SERUM 142 mg/dL (82-167); COMPLEMENT C4, SERUM 34 mg/dL (12-38)
--- NOTE | 2024-10-03 09:38 | PROGRESS NOTE ---
Progress Note Dictate Providers to CC ~ Central Line/PICC still needed: Yes Central Line/PICC Necessity: Req HD/Plasmapheresis [facility] Indications Met/Not Met: F/C Indications Not Met Antibiotic Ordered?: N/A Subjective Subjective has TDC in place. outpatient dialysis placement in progress. hopeful discharge in a couple of days when paperworks go through. He will be dialyzed again tomorrow. Objective Vitals Vital Signs Date Time Temp Pulse Resp B/P (MAP) Pulse Ox O2 Delivery O2 Flow Rate FiO2 10/03/24 08:00 14 96 Room Air 10/03/24 02:00 98.1 96 100/66 (77) 09/30/24 17:12 0 Lab Results: 10/03/24 0623 10/03/24 0623 Objective Vital Signs: As above General: Normal body habitus, no acute distress. Skin: No rashes, lumps, ulcers, blisters, purpura or petechiae HEENT: Anicteric sclera, DALJIT Neck: Supple and nontender without enlargement of the thyroid, or lymphadenopathy. Chest: Normal size and shape, no tenderness, CTA bilaterally Heart: Regular. No jugular venous distention, S1 and S2 heard , no gallop Abdomen: Soft and non tender no organomegaly,BS+ Extremities: No pedal edema Neuro: Nonfocal. Advance Care Planning Advanced Care plannin - 30 Minutes Problem\Assessment\Plan Problems/Diagnosis: (1) EDGARDO (acute kidney injury) Assessment & Plan: This appears mostly chronic as it has been dating back by a year atleast according to patient with eGFR said to be 15 then. HD started yesterday and will continue doing it today. Outpatient dialysis placement pending. Renal Us shows echogenic kidneys consistent with CKD (2) ESRD (end stage renal disease) Assessment & Plan: discussed with him about renal diet in general. Needs dietitian consult.fluid restriction to 1.2 liters per day. rule out any vasculitis. serology tests pending. (3) Hypertension Assessment & Plan: well controlled. avoid NSAIDs. Avoid Magnesium and aluminum based laxatives or antacids please. If pain meds are needed, stick to fentanyl or Dilaudid please. Avoid Morphine. renal dietitian consult please. Sepsis Screening Skin Color: Normal ANNEL CASTILLO MD Oct 03, 2024 09:38
[2024-10-03 11:00] VITALS: BP 104/63; PULSE 95; RESP 15; TEMP 97.8; O2SAT 98
[2024-10-03 18:00] VITALS: BP 119/84; PULSE 95; RESP 18; TEMP 98.4; O2SAT 97
--- NOTE | 2024-10-03 18:07 | PROGRESS NOTE- Residence ---
Progress Note - Resident Providers to CC Resident Creating Document: DUDLEY MCDOWELL, RES ~ Antibiotic Timeout Antibiotic Ordered?: No Subjective Patient seen and examined at bedside. He had his 2nd dose of hemodialysis yesterday. Plan the 3rd dose of hemodialysis tomorrow. Objective Vital Signs Date Time Temp Pulse Resp B/P (MAP) Pulse Ox O2 Delivery O2 Flow Rate FiO2 10/03/24 11:00 97.8 95 15 104/63 (77) 98 Room Air 09/30/24 17:12 0 Physical exam: General: Well alert, well oriented, not confused, not agitated, not in acute distress, well cooperated during the physical. HEENT: Conjunctive are pink, sclerae clear, no icterus, pupil is equal in both sides, reactive to light, no ear discharge, no pharyngeal erythema or an edema. Neck: Supple, no JVD, no lymphadenopathy and thyromegaly. Chest: Equal air entry on both lungs, no additional sounds no rhonchi no wheezing at the moment. Right sided TDC in the right upper chest. Cardiovascular: S1-S2 regular sinus rhythm and, regular rate, no gallops, no rubs, no murmurs Abdomen: No visible peristalsis, Bowel sounds present on auscultation, soft, nontender, no guarding, no rigidity Extremities: No obvious deformities, no pitting edema bilaterally, capillary refill intact, peripheral pulsations are intact on both sides Central Nervous System: No focal neurological deficits, no motor or sensory weakness in all 4 extremities, could move all 4 extremities, 2+ deep tendon reflexes, negative Babinski. Musculoskeletal: No joint swelling, deformities, inflammations, and no scoliosis and back tenderness Skin: Warm and dry. Result Diagram: 10/03/2462210/03/24622 Assessment Assessment 39-year-old male with history of congestive heart failure, CKD, hypertension is transferred to the ED from [facility] for higher level of care and management for hypertension, EDGARDO on CKD and CHF. He presented to the ED at [place] with chief complaints of worsening shortness of breath, weakness in the fingers and feet since the past three days. Plan Plan EDGARDO on CKD likely secondary to ATN, creatinine 11.06 (creatinine range in 2023: 1.9-2.3-2.1-2.2 -2.5) Elevated anion gap metabolic acidosis Hyperphosphatemia BUN 74, creatinine 11.06, GFR 5, anion gap 19 Currently saturating well on room air Started bicarb drip at 100 mL/hour Follow up with urine spot studies and renal ultrasound Follow up with [facility] and Nephrology consulted, appreciate recommendations 10/01/2024 Renal ultrasound echogenic renal cortices with mild renal disease. Echo EF 50-55%, RVSP 51 Creatinine 11.[address] Daley for TDC He will be started on hemodialysis soon REVIEW OF RECORDS FROM [place] Looks like he has been to [facility] multiple times in the last one year (May 2023, July 2023, November 2023, January 2024) for complaints of hypertension, shortness of breath, CHF and EDGARDO. His creatinine at that time was in the range 1.9-2.3-2.1-2.2 -2.5. In January 2024 angiogram was done, and later developed a small hematoma in the groin, he had the CTA of the abdomen which showed a small hematoma at the right common femoral artery. No pseudoaneurysm or hemorrhage. Creatinine at this time was around 2.1-2.2. 10/02/2024 1st episode of hemodialysis on 10/01/2024 Going to be dialyzed today and tomorrow Urinalysis shows findings positive for proteinuria and hematuria, possibility of underlying nephritic syndrome, awaiting serologic study results Doppler kidneys: Slightly elevated left renal artery resistive index could represent renal artery stenosis, recommended CT angio of the abdomen, cannot be done at this time with his acute kidney injury Nephrology is also recommending outpatient kidney biopsy. 10/03/2024 Awaiting for spot for outpatient hemodialysis. To receive a last session of hemodialysis tomorrow. Anticipated discharge tomorrow. Hypertensive emergency POA, currently having soft blood pressures Has been transferred from [place] with a nicardipine drip, continue drip for now Home blood pressure medication Coreg 10/01/2024 Nicardipine drip discontinued Transitioned to amlodipine 10 and lisinopril 20 overnight BP stable so far, we will continue to monitor Resume Home medication Coreg 25 p.o. b.i.d. and losartan 25 p.o. daily, DC amlodipine and lisinopril 10/02/2024 Blood pressures have been soft, morning dose of Coreg and losartan held, if BP continues to remain soft can decrease/DC the dose of Coreg to 6.25 BID. 10/03/2024 Blood pressure: 104/63. We will probably DC losartan and decrease dose of Coreg for discharge. Chronic CHF preserved [place] BNP 60250, likely secondary to EDGARDO EKG shows sinus tachycardia, no ST/T-wave changes. Possible Left ventricular hypertrophy. He is fine crackles bilaterally, mild edema in the bilateral hands and abdomen is distended and tight no lower extremity edema. He is currently in significant EDGARDO with metabolic acidosis continue bicarb drip for now Reassess fluid status in a.m. 10/02/2024 EF is preserved 50-55%, RVSP 51 No signs of fluid overload Fluids per assistant paralegal recommendations DC bicarb drip 10/03/2024 We will continue Coreg in a decreased dose at discharge. History of hypertension History of CKD Code Status: Full code DVT prophylaxis: Heparin Analgesia/sedation: None Line/tube: PIV GI prophylaxis: None Nutrition: Renal diet Prognosis: Guarded Disposition: Continue medical management. Awaiting for spot for outpatient hemodialysis. To receive a last session of hemodialysis tomorrow. Anticipated discharge tomorrow. Dudley Taylor Internal Medicine Resident [facility] Date of Service: Oct 03, 2024 Billing Provider: KIA MULLIGAN MD Common Visit Codes: [id number] INP/OBS CARE(HIGH) DUDLEY MCDOWELL, RES Oct 03, 2024 18:07 KIA MULLIGAN MD Oct 06, 2024 08:04
[2024-10-03 22:00] VITALS: BP 119/82; PULSE 95; RESP 15; TEMP 98.4; O2SAT 97
[2024-10-04] VITALS (14 sets, daily range): BP systolic 106–117; BP diastolic 61–84; PULSE 78–95; RESP 14–26; TEMP 96.7–98.6; O2SAT 95–98
[2024-10-04 07:29] LABS: BASOPHILS # (AUTO) 0.1 X10'3 (0-0.2); BASOPHILS % (AUTO) 0.8 % (0-1); EOSINOPHILS # (AUTO) 0.3 X10'3 (0-0.9); HEMATOCRIT 29.3 % (42.0-52.0); HEMOGLOBIN 9.6 g/dl (14.0-17.9); LYMPHOCYTES # (AUTO) 2.5 X10'3 (1.1-4.8); LYMPHOCYTES % (AUTO) 23.1 % (21-51); MEAN CORPUSCULAR HEMOGLOBIN 26.4 PG (27.0-31.0); MEAN CORPUSCULAR HGB CONC 32.6 g/dL (33.0-36.5); MEAN PLATELET VOLUME 7.2 FL (7.4-10.4); MONOCYTES # (AUTO) 0.9 X10'3 (0-0.9); MONOCYTES % (AUTO) 8.4 % (2-12); NEUTROPHILS # (AUTO) 7.1 X10'3 (1.8-7.7); NEUTROPHILS % (AUTO) 64.7 % (42-75); PLATELET COUNT 231 X10'3 (140-440); RED BLOOD COUNT 3.62 X10'6 (4.70-6.10); RED CELL DISTRIBUTION WIDTH 13.7 % (11.5-14.5)
[2024-10-04 07:53] LABS: ALANINE AMINOTRANSFERASE 16 U/L (12-78); ALBUMIN 2.8 G/DL (3.4-5.0); ALBUMIN/GLOBULIN RATIO 0.7 (1.1-1.5); ALKALINE PHOSPHATASE 59 IU/L (46-116); ANION GAP 14 (8-16); ASPARTATE AMINO TRANSFERASE 11 U/L (10-37); BILIRUBIN,TOTAL 0.4 MG/DL (0.1-1.0); BLOOD UREA NITROGEN 61 MG/DL (7-18); BUN/CREATININE RATIO 5.5 (10.0-20.0); CALCIUM 8.7 MG/DL (8.5-10.1); CHLORIDE 96 MMOL/L (99-107); CREATININE 11.17 MG/DL (0.60-1.10); GLUCOSE 107 MG/DL (70-104); PHOSPHORUS 8.8 MG/DL (2.3-4.5); POTASSIUM 4.3 MMOL/L (3.5-5.1); SODIUM 132 MMOL/L (135-145); TOTAL CARBON DIOXIDE 22.3 MMOL/L (24-32); TOTAL PROTEIN 6.6 G/DL (6.4-8.2); eCRCL 9 ML/MIN; eGFR 5 ML/MIN
--- NOTE | 2024-10-04 08:24 | PROGRESS NOTE ---
Progress Note Dictate Providers to CC ~ Antibiotic Ordered?: N/A Subjective Subjective He reports doing well, no specific complaints, nurses report no new events since last evaluation, resting comfortably in bed, had his first 2 dialysis sessions 1 yesterday and the day before, plan is for dialysis today, working on outpatient dialysis chair in the community, okay to discharge when we get a date and time Objective Vitals Vital Signs Date Time Temp Pulse Resp B/P (MAP) Pulse Ox O2 Delivery O2 Flow Rate FiO2 10/04/24 07:29 97.9 89 26 116/72 (87) 97 Room Air 09/30/24 17:12 0 General: Well appearing, NAD, appears comfortable Neck: No JVD, or bruits, TDC clean and dry CV: RRR w/o murmur, pulses 2+ symmetrical, no edema Pulm: CTA Bilateral no wheezes Abd: + BS, NT Musc: Ambulates without assistance, strength 5/5 in all major muscle groups Lab Results: 10/04/24 0702 10/04/24 0702 Other Results I & O 10/04/24 07:00 Intake Total 1020 ml Balance 1020 ml Intake Oral 1020 ml # Voids 3 # Bowel Movements 2 Problem\Assessment\Plan Problems/Diagnosis: (1) EDGARDO (acute kidney injury) Assessment & Plan: His CKD is likely progression, had a GFR of 15 last year, has tunneled dialysis catheter in place as he had his first 2 sessions of dialysis without complications, we will plan on doing his third session today, working on a chair in the community soon as we have a dialysis time and schedule we can discharge him home with follow-up at the dialysis center (2) ESRD (end stage renal disease) Assessment & Plan: We discussed some simple dietary requirements with dialysis to include low potassium low phosphorus diet, watch his fluid intake between dialysis sessions (3) Hypertension Assessment & Plan: Well controlled at goal of less than 140/90 Avoid NSAIDs. Avoid Magnesium and aluminum based laxatives or antacids please. If he has significant pain and requires intervention, would recommend either fentanyl, Dilaudid or oxycodone, avoid morphine or its derivatives Renal dietitian consult please. Sepsis Screening Skin Color: Normal WALL,SLIM M III DO Oct 04, 2024 08:24
--- NOTE | 2024-10-04 09:58 | RADIOLOGY REPORT ---
EXAM: DI CHEST,SINGLE VIEW Indication: TB CLEARANCE FOR HD Technique: Single frontal view of the chest was obtained Comparison: DI CHEST,SINGLE VIEW on DOS: 09/30/24 FINDINGS: Lines and Tubes: Tunneled dialysis catheter tip projects over the cavoatrial junction. Lungs: No focal consolidation. Pleura: No effusion. No pneumothorax. Cardiomediastinal contours: Unremarkable Bones: No acute osseous abnormality. IMPRESSION: No radiographic evidence of tuberculosis. No acute cardiopulmonary disease.
[2024-10-04] MEDS: EPOETIN ALFA-EPBX 20,000 UNIT/ML 1 ML MDV IV ONE (13:23)
[2024-10-04] MEDS: heparin 1,000 units/ml 10ml inj IV ONE (13:24)
[2024-10-04] MEDS: heparin 1,000 units/ml 10ml inj HE ONE ×2 (13:25→13:26)
[2024-10-04] MEDS: heparin 1,000unit/ml 10ml vial 10 ML IV ONE (13:25)
--- NOTE | 2024-10-04 14:07 | PROGRESS NOTE- Residence ---
Progress Note - Resident Providers to CC Resident Creating Document: JESSICA JULIO RES ~ Antibiotic Timeout Antibiotic Ordered?: No Subjective Patient seen and examined at bedside. HD again today. No concerns or complaints at this time. Objective Vital Signs Date Time Temp Pulse Resp B/P (MAP) Pulse Ox O2 Delivery O2 Flow Rate FiO2 10/04/24 13:35 82 16 117/84 (95) 95 Room Air 10/04/24 13:05 98.0 09/30/24 17:12 0 Result Diagram: 10/04/24 0702 10/04/24 0702 General: Awake and Alert, no acute distress. Currently Saturating well on room air. HEENT: Conjunctiva pink, Sclera clear, Mucus Membranes moist. Neck: Supple without masses and tenderness. Chest: Right-sided TDC in place. Resp: Unlabored. Bilateral basal fine crackles. Heart: Regular rhythm, normal S1 and S2, no rub, murmur or gallop. Abdomen: Abdomen distended and tight, normal bowel sounds x4. No guarding or rigidity. Extremities: Normal ROM, no swelling, nontender. No cyanosis,clubbing or edema. RECEPTION SPECIALIST: No gross motor or sensory abnormalities. Skin: Warm and Dry. Assessment Assessment 39-year-old male with history of congestive heart failure, CKD, hypertension is transferred to the ED from [facility] for higher level of care and management for hypertension, EDGARDO on CKD and CHF. He presented to the ED at [place] with chief complaints of worsening shortness of breath, weakness in the fingers and feet since the past three days. Plan Plan EDGARDO on CKD likely secondary to ATN, creatinine 11.06 (creatinine range in 2023: 1.9-2.3-2.1-2.2 -2.5) Elevated anion gap metabolic acidosis Hyperphosphatemia BUN 74, creatinine 11.06, GFR 5, anion gap 19 Currently saturating well on room air Started bicarb drip at 100 mL/hour Follow up with urine spot studies and renal ultrasound Follow up with IDox and Nephrology consulted, appreciate recommendations 10/01/2024 Renal ultrasound echogenic renal cortices with mild renal disease. Echo EF 50-55%, RVSP 51 Creatinine 11.[address] Daley for TDC He will be started on hemodialysis soon REVIEW OF RECORDS FROM [place] Looks like he has been to [facility] multiple times in the last one year (May 2023, July 2023, November 2023, January 2024) for complaints of hypertension, shortness of breath, CHF and EDGARDO. His creatinine at that time was in the range 1.9-2.3-2.1-2.2 -2.5. In January 2024 angiogram was done, and later developed a small hematoma in the groin, he had the CTA of the abdomen which showed a small hematoma at the right common femoral artery. No pseudoaneurysm or hemorrhage. Creatinine at this time was around 2.1-2.2. 10/02/2024 1st episode of hemodialysis on 10/01/2024 Going to be dialyzed today and tomorrow Urinalysis shows findings positive for proteinuria and hematuria, possibility of underlying nephritic syndrome, awaiting serologic study results Doppler kidneys: Slightly elevated left renal artery resistive index could represent renal artery stenosis, recommended CT angio of the abdomen, cannot be done at this time with his acute kidney injury Nephrology is also recommending outpatient kidney biopsy. 10/03/2024 Awaiting for spot for outpatient hemodialysis. To receive a last session of hemodialysis tomorrow. 10/04/2024 Another round of hemodialysis today, awaiting serology results of hepatitis-B Case management working on setting up hemodialysis at [place] Fluid restriction 1.5 L a day Hypertensive emergency POA, resolved Blood pressure soft, DC blood pressure medications Has been transferred from [place] with a nicardipine drip, continue drip for now Home blood pressure medication Coreg 10/01/2024 Nicardipine drip discontinued Transitioned to amlodipine 10 and lisinopril 20 overnight BP stable so far, we will continue to monitor Resume Home medication Coreg 25 p.o. b.i.d. and losartan 25 p.o. daily, DC amlodipine and lisinopril 10/02/2024 Blood pressures have been soft, morning dose of Coreg and losartan held, if BP continues to remain soft can decrease/DC the dose of Coreg to 6.25 BID. 10/03/2024 Blood pressure: 104/63. We will probably DC losartan and decrease dose of Coreg for discharge. 10/04/2024 DC losartan and Coreg Chronic CHF preserved EF BNP 49549, likely secondary to EDGARDO EKG shows sinus tachycardia, no ST/T-wave changes. Possible Left ventricular hypertrophy. He is fine crackles bilaterally, mild edema in the bilateral hands and abdomen is distended and tight no lower extremity edema. He is currently in significant EDGARDO with metabolic acidosis continue bicarb drip for now Reassess fluid status in a.m. 10/02/2024 EF is preserved 50-55%, RVSP 51 No signs of fluid overload Fluids per lumber yard worker recommendations DC bicarb drip 10/03/2024 We will continue Coreg in a decreased dose at discharge. 10/04/2024 DC Coreg due to soft blood pressures Lasix and fluid restriction per Nephrology recommendations History of hypertension History of CKD Code Status: Full code DVT prophylaxis: Heparin Analgesia/sedation: None Line/tube: PIV GI prophylaxis: None Nutrition: Renal diet Prognosis: Guarded Disposition: Continue medical management. Awaiting for spot for outpatient hemodialysis. Jessica Julio IM Resident, PGY 2 Date of Service: Oct 04, 2024 Billing Provider: KIA MULLIGAN MD Common Visit Codes: [id number] INP/OBS CARE(HIGH) JESSICA JULIO, RES Oct 04, 2024 14:07 KIA MULLIGAN MD Oct 06, 2024 08:04
[2024-10-05] VITALS (8 sets, daily range): BP systolic 90–120; BP diastolic 48–68; PULSE 70–113; RESP 14–25; TEMP 97.6–98.6; O2SAT 94–99
[2024-10-05 05:14] LABS: HBSAG SCREEN Negative (Negative)
[2024-10-05 05:14] LABS: HBSAG SCREEN Negative (Negative)
[2024-10-05 06:12] LABS: HEP B CORE AB, TOT Negative (Negative)
[2024-10-05 06:20] LABS: BASOPHILS # (AUTO) 0.1 X10'3 (0-0.2); BASOPHILS % (AUTO) 0.6 % (0-1); EOSINOPHILS # (AUTO) 0.3 X10'3 (0-0.9); EOSINOPHILS % (AUTO) 2.7 % (0-6); HEMATOCRIT 30.6 % (42.0-52.0); HEMOGLOBIN 9.9 g/dl (14.0-17.9); LYMPHOCYTES # (AUTO) 2.9 X10'3 (1.1-4.8); LYMPHOCYTES % (AUTO) 24.5 % (21-51); MEAN CORPUSCULAR HEMOGLOBIN 26.4 PG (27.0-31.0); MEAN CORPUSCULAR HGB CONC 32.5 g/dL (33.0-36.5); MEAN CORPUSCULAR VOLUME 81.2 FL (78-98); MEAN PLATELET VOLUME 7.5 FL (7.4-10.4); MONOCYTES # (AUTO) 0.9 X10'3 (0-0.9); MONOCYTES % (AUTO) 7.8 % (2-12); NEUTROPHILS # (AUTO) 7.7 X10'3 (1.8-7.7); NEUTROPHILS % (AUTO) 64.4 % (42-75); PLATELET COUNT 280 X10'3 (140-440); RED BLOOD COUNT 3.77 X10'6 (4.70-6.10); RED CELL DISTRIBUTION WIDTH 13.6 % (11.5-14.5)
--- NOTE | 2024-10-05 06:26 | PROGRESS NOTE ---
Progress Note Dictate Providers to CC ~ Antibiotic Ordered?: N/A Subjective Subjective He reports doing well, no specific complaints, nurses report no new events since last evaluation, resting comfortably in bed, had his first 3 dialysis sessions, no diaslysis planned for today, working on outpatient dialysis chair in the community, okay to discharge when we get a date and time Objective Vitals Vital Signs Date Time Temp Pulse Resp B/P (MAP) Pulse Ox O2 Delivery O2 Flow Rate FiO2 10/06/24 02:00 97.7 78 15 95/61 (72) 98 Room Air 10/05/24 20:00 0.0 Alert appears comfortable RRR w/o murmur CTA B +BS, NT Lab Results: 10/05/24 0519 10/05/24 0519 Other Results I & O 10/06/24 07:00 Intake Total 1000 ml Balance 1000 ml Intake Oral 1000 ml Other 0 ml # Voids 2 Problem\Assessment\Plan Problems/Diagnosis: (1) EDGARDO (acute kidney injury) Assessment & Plan: His CKD is likely progression, had a GFR of 15 last year, has tunneled dialysis catheter in place as he had his first 3 sessions of dialysis without complications, we will plan on doing his usual dialysis tomorrow, working on a chair in the community soon as we have a dialysis time and schedule we can discharge him home with follow-up at the dialysis center (2) ESRD (end stage renal disease) Assessment & Plan: We discussed some simple dietary requirements with dialysis to include low potassium low phosphorus diet, watch his fluid intake between dialysis sessions (3) Hypertension Assessment & Plan: Well controlled at goal of less than 140/90 - Continue Losartan and Carvedilol, if not at goal assess dry weight and consider CCB Sepsis Screening Skin Color: Normal WALL,SLIM Garcia III DO Oct 05, 2024 06:26
[2024-10-05 06:45] LABS: ALANINE AMINOTRANSFERASE 17 U/L (12-78); ALBUMIN/GLOBULIN RATIO 0.8 (1.1-1.5); ALKALINE PHOSPHATASE 64 IU/L (46-116); ANION GAP 15 (8-16); ASPARTATE AMINO TRANSFERASE 19 U/L (10-37); BILIRUBIN,TOTAL 0.3 MG/DL (0.1-1.0); BLOOD UREA NITROGEN 39 MG/DL (7-18); BUN/CREATININE RATIO 4.7 (10.0-20.0); CALCIUM 8.8 MG/DL (8.5-10.1); CHLORIDE 97 MMOL/L (99-107); CREATININE 8.38 MG/DL (0.60-1.10); GLUCOSE 109 MG/DL (70-104); PHOSPHORUS 6.9 MG/DL (2.3-4.5); POTASSIUM 4.2 MMOL/L (3.5-5.1); SODIUM 135 MMOL/L (135-145); TOTAL CARBON DIOXIDE 23.2 MMOL/L (24-32); eCRCL 12 ML/MIN; eGFR 7 ML/MIN
[2024-10-05] MEDS: NUT.TX.IMP.RENAL FXN,LAC-REDUC (Nepro) 237 ML VANILLA PO SCH (17:00)
--- NOTE | 2024-10-05 17:18 | PROGRESS NOTE- Residence ---
Progress Note - Resident Providers to CC Resident Creating Document: JESSICA JULIO RES ~ Antibiotic Timeout Antibiotic Ordered?: No Subjective Patient seen and examined at bedside. No concerns or complaints at this time. Awaiting set up of HD chair. Objective Vital Signs Date Time Temp Pulse Resp B/P (MAP) Pulse Ox O2 Delivery O2 Flow Rate FiO2 10/05/24 14:44 97.8 85 17 90/48 (62) 99 Room Air 10/04/24 20:00 0.0 Result Diagram: 10/05/2451810/05/24518 General: Awake and Alert, no acute distress. Currently Saturating well on room air. HEENT: Conjunctiva pink, Sclera clear, Mucus Membranes moist. Neck: Supple without masses and tenderness. Chest: Right-sided TDC in place. Resp: Unlabored. Bilateral basal fine crackles. Heart: Regular rhythm, normal S1 and S2, no rub, murmur or gallop. Abdomen: Abdomen distended and tight, normal bowel sounds x4. No guarding or rigidity. Extremities: Normal ROM, no swelling, nontender. No cyanosis,clubbing or edema. SPOT WELDER: No gross motor or sensory abnormalities. Skin: Warm and Dry. Assessment Assessment 39-year-old male with history of congestive heart failure, CKD, hypertension is transferred to the ED from [facility] for higher level of care and management for hypertension, EDGARDO on CKD and CHF. He presented to the ED at [place] with chief complaints of worsening shortness of breath, weakness in the fingers and feet since the past three days. Plan Plan EDGARDO on CKD likely secondary to ATN, creatinine 11.06 (creatinine range in 2023: 1.9-2.3-2.1-2.2 -2.5) Elevated anion gap metabolic acidosis Hyperphosphatemia BUN 74, creatinine 11.06, GFR 5, anion gap 19 Currently saturating well on room air Started bicarb drip at 100 mL/hour Follow up with urine spot studies and renal ultrasound Follow up with UTox and Nephrology consulted, appreciate recommendations 10/01/2024 Renal ultrasound echogenic renal cortices with mild renal disease. Echo EF 50-55%, RVSP 51 Creatinine 11.2 [address] Daley for TDC He will be started on hemodialysis soon REVIEW OF RECORDS FROM [place] Looks like he has been to [facility] multiple times in the last one year (May 2023, July 2023, November 2023, January 2024) for complaints of hypertension, shortness of breath, CHF and EDGARDO. His creatinine at that time was in the range 1.9-2.3-2.1-2.2 -2.5. In January 2024 angiogram was done, and later developed a small hematoma in the groin, he had the CTA of the abdomen which showed a small hematoma at the right common femoral artery. No pseudoaneurysm or hemorrhage. Creatinine at this time was around 2.1-2.2. 10/02/2024 1st episode of hemodialysis on 10/01/2024 Going to be dialyzed today and tomorrow Urinalysis shows findings positive for proteinuria and hematuria, possibility of underlying nephritic syndrome, awaiting serologic study results Doppler kidneys: Slightly elevated left renal artery resistive index could represent renal artery stenosis, recommended CT angio of the abdomen, cannot be done at this time with his acute kidney injury Nephrology is also recommending outpatient kidney biopsy. 10/03/2024 Awaiting for spot for outpatient hemodialysis. To receive a last session of hemodialysis tomorrow. 10/04/2024 Another round of hemodialysis today, awaiting serology results of hepatitis-B Case management working on setting up hemodialysis at [place] Fluid restriction 1.5 L a day 10/05/2024 HD tomorrow, Case management working on helping set up by chair time for him for outpatient dialysis at [place] Hypertensive emergency POA, resolved Blood pressure soft, DC blood pressure medications Has been transferred from [place] with a nicardipine drip, continue drip for now Home blood pressure medication Coreg 10/01/2024 Nicardipine drip discontinued Transitioned to amlodipine 10 and lisinopril 20 overnight BP stable so far, we will continue to monitor Resume Home medication Coreg 25 p.o. b.i.d. and losartan 25 p.o. daily, DC amlodipine and lisinopril 10/02/2024 Blood pressures have been soft, morning dose of Coreg and losartan held, if BP continues to remain soft can decrease/DC the dose of Coreg to 6.25 BID. 10/03/2024 Blood pressure: 104/63. We will probably DC losartan and decrease dose of Coreg for discharge. 10/04/2024 DC losartan and Coreg Chronic CHF preserved EF BNP 33629, likely secondary to EDGARDO EKG shows sinus tachycardia, no ST/T-wave changes. Possible Left ventricular hypertrophy. He is fine crackles bilaterally, mild edema in the bilateral hands and abdomen is distended and tight no lower extremity edema. He is currently in significant EDGARDO with metabolic acidosis continue bicarb drip for now Reassess fluid status in a.m. 10/02/2024 EF is preserved 50-55%, RVSP 51 No signs of fluid overload Fluids per blockman recommendations DC bicarb drip 10/03/2024 We will continue Coreg in a decreased dose at discharge. 10/04/2024 DC Coreg due to soft blood pressures Lasix and fluid restriction per Nephrology recommendations History of hypertension History of CKD Code Status: Full code DVT prophylaxis: Heparin Analgesia/sedation: None Line/tube: PIV GI prophylaxis: None Nutrition: Renal diet Prognosis: Guarded Disposition: Continue medical management. Awaiting for spot for outpatient hemodialysis. He has a chair time at 2:55 p.m. Friday at [facility], awaiting insurance authorization. Jessica Julio IM Resident, PGY 2 Date of Service: Oct 05, 2024 Billing Provider: KIA MULLIGAN MD Common Visit Codes: [id number] INP/OBS CARE(HIGH) JESSICA JULIO, GUANAKO Oct 05, 2024 17:17 KIA MULLIGAN MD Oct 06, 2024 08:05
[2024-10-05] MEDS: carVEDilol 12.5mg tablet PO ONE (19:30)
[2024-10-06] VITALS (15 sets, daily range): BP systolic 91–127; BP diastolic 61–81; PULSE 71–96; RESP 15–18; TEMP 96.7–98.2; O2SAT 95–100
[2024-10-06 05:20] LABS: ATYPICAL PANCA <1:20 titer (Neg:<1:20); CYTOPLASMIC (C-ANCA) <1:20 titer (Neg:<1:20); PERINUCLEAR (P-ANCA) <1:20 titer (Neg:<1:20)
[2024-10-06 05:20] LABS: ATYPICAL PANCA <1:20 titer (Neg:<1:20); CYTOPLASMIC (C-ANCA) <1:20 titer (Neg:<1:20); PERINUCLEAR (P-ANCA) <1:20 titer (Neg:<1:20)
[2024-10-06] MEDS ORDERED: normal saline 1000ml 100 ML IV PRN ×2 (06:10→08:00)
[2024-10-06 06:55] LABS: BASOPHILS # (AUTO) 0.1 X10'3 (0-0.2); BASOPHILS % (AUTO) 0.7 % (0-1); EOSINOPHILS # (AUTO) 0.4 X10'3 (0-0.9); EOSINOPHILS % (AUTO) 3.1 % (0-6); HEMOGLOBIN 9.4 g/dl (14.0-17.9); LYMPHOCYTES # (AUTO) 3.2 X10'3 (1.1-4.8); LYMPHOCYTES % (AUTO) 27.7 % (21-51); MEAN CORPUSCULAR HEMOGLOBIN 26.6 PG (27.0-31.0); MEAN CORPUSCULAR HGB CONC 32.4 g/dL (33.0-36.5); MEAN CORPUSCULAR VOLUME 82.1 FL (78-98); MEAN PLATELET VOLUME 7.5 FL (7.4-10.4); MONOCYTES # (AUTO) 0.8 X10'3 (0-0.9); MONOCYTES % (AUTO) 7.3 % (2-12); NEUTROPHILS # (AUTO) 7.1 X10'3 (1.8-7.7); NEUTROPHILS % (AUTO) 61.2 % (42-75); PLATELET COUNT 259 X10'3 (140-440); RED BLOOD COUNT 3.54 X10'6 (4.70-6.10); RED CELL DISTRIBUTION WIDTH 13.8 % (11.5-14.5); WHITE BLOOD COUNT 11.6 X10'3 (4.5-11.0)
[2024-10-06 07:13] LABS: ALBUMIN 2.9 G/DL (3.4-5.0); ANION GAP 17 (8-16); BLOOD UREA NITROGEN 56 MG/DL (7-18); BUN/CREATININE RATIO 5.3 (10.0-20.0); CALCIUM 8.4 MG/DL (8.5-10.1); CHLORIDE 93 MMOL/L (99-107); CREATININE 10.53 MG/DL (0.60-1.10); GLUCOSE 109 MG/DL (70-104); POTASSIUM 4.2 MMOL/L (3.5-5.1); SODIUM 130 MMOL/L (135-145); TOTAL CARBON DIOXIDE 20.4 MMOL/L (24-32); eCRCL 9 ML/MIN; eGFR 5 ML/MIN
[2024-10-06] MEDS: EPOETIN ALFA-EPBX 20,000 UNIT/ML 1 ML MDV IV ONE (08:09)
--- NOTE | 2024-10-06 08:10 | PROGRESS NOTE ---
Progress Note Dictate Providers to CC ~ Antibiotic Ordered?: N/A Subjective Subjective Today, getting his dialysis treatment today during our evaluation, my understanding is that he has a chair in the community near his home in [facility] today, nurses report no new events since last evaluation Objective Vitals Vital Signs Date Time Temp Pulse Resp B/P (MAP) Pulse Ox O2 Delivery O2 Flow Rate FiO2 10/06/24 07:30 74 16 91/61 (71) 97 Room Air 10/06/24 06:51 97.5 10/05/24 20:00 0.0 General: Well appearing, NAD, appears comfortable Neck: No JVD, or bruits CV: RRR w/o murmur, pulses 2+ symmetrical, no edema Pulm: CTA Bilateral no wheezes Abd: + BS, NT Musc: Ambulates without assistance, strength 5/5 in all major muscle groups Lab Results: 10/06/24 0609 10/06/24 0609 Other Results I & O 10/06/24 07:00 Intake Total 1000 ml Balance 1000 ml Intake Oral 1000 ml Other 0 ml # Voids 2 Problem\Assessment\Plan Problems/Diagnosis: (1) EDGARDO (acute kidney injury) Assessment & Plan: His CKD is likely progression, had a GFR of 15 last year, has tunneled dialysis catheter in place as he had his first 3 sessions of dialysis without complications, we will plan on doing his usual dialysis today, working on a chair in the community soon as we have a dialysis time and schedule we can discharge him home with follow-up at the dialysis center (2) ESRD (end stage renal disease) Assessment & Plan: We discussed some simple dietary requirements with dialysis to include low potassium low phosphorus diet, watch his fluid intake between dialysis sessions (3) Hypertension Assessment & Plan: Well controlled at goal of less than 140/90 - Continue Losartan and Carvedilol, if not at goal assess dry weight and consider CCB Additional Plan From a renal perspective, he is okay to discharge today if he has a chair available on a time, would let his dialysis center know that he is interested in home dialysis Sepsis Screening Skin Color: Normal WALL,SLIM Garcia III DO Oct 06, 2024 08:10
[2024-10-06] MEDS: heparin 1,000 units/ml 10ml inj HE ONE ×2 (08:11→08:12)
--- NOTE | 2024-10-06 14:06 | PROGRESS NOTE- Residence ---
Progress Note - Resident Providers to CC Resident Creating Document: JESSICA JULIO RES ~ Antibiotic Timeout Antibiotic Ordered?: No Subjective Patient seen and examined at bedside. No concerns or complaints at this time. Awaiting insurance auth. Objective Vital Signs Date Time Temp Pulse Resp B/P (MAP) Pulse Ox O2 Delivery O2 Flow Rate FiO2 10/06/24 09:30 96.7 71 16 101/62 (75) 95 Room Air 10/05/24 20:00 0.0 Result Diagram: 10/06/24 0609 10/06/24 06 General: Awake and Alert, no acute distress. Currently Saturating well on room air. HEENT: Conjunctiva pink, Sclera clear, Mucus Membranes moist. Neck: Supple without masses and tenderness. Chest: Right-sided TDC in place. Resp: Unlabored. Bilateral basal fine crackles. Heart: Regular rhythm, normal S1 and S2, no rub, murmur or gallop. Abdomen: Abdomen distended and tight, normal bowel sounds x4. No guarding or rigidity. Extremities: Normal ROM, no swelling, nontender. No cyanosis,clubbing or edema. 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 Skin: Warm and Dry. Assessment Assessment 39-year-old male with history of congestive heart failure, CKD, hypertension is transferred to the ED from [facility] for higher level of care and management for hypertension, EDGARDO on CKD and CHF. He presented to the ED at [place] with chief complaints of worsening shortness of breath, weakness in the fingers and feet since the past three days. Plan Plan EDGARDO on CKD likely secondary to ATN, creatinine 11.06 (creatinine range in 2023: 1.9-2.3-2.1-2.2 -2.5) Elevated anion gap metabolic acidosis Hyperphosphatemia BUN 74, creatinine 11.06, GFR 5, anion gap 19 Currently saturating well on room air Started bicarb drip at 100 mL/hour Follow up with urine spot studies and renal ultrasound Follow up with UTox and Nephrology consulted, appreciate recommendations 10/01/2024 Renal ultrasound echogenic renal cortices with mild renal disease. Echo EF 50-55%, RVSP 51 Creatinine 11.2 [address] Daley for TDC He will be started on hemodialysis soon REVIEW OF RECORDS FROM [place] Looks like he has been to [facility] multiple times in the last one year (May 2023, July 2023, November 2023, January 2024) for complaints of hypertension, shortness of breath, CHF and EDGARDO. His creatinine at that time was in the range 1.9-2.3-2.1-2.2 -2.5. In January 2024 angiogram was done, and later developed a small hematoma in the groin, he had the CTA of the abdomen which showed a small hematoma at the right common femoral artery. No pseudoaneurysm or hemorrhage. Creatinine at this time was around 2.1-2.2. 10/02/2024 1st episode of hemodialysis on 10/01/2024 Going to be dialyzed today and tomorrow Urinalysis shows findings positive for proteinuria and hematuria, possibility of underlying nephritic syndrome, awaiting serologic study results Doppler kidneys: Slightly elevated left renal artery resistive index could represent renal artery stenosis, recommended CT angio of the abdomen, cannot be done at this time with his acute kidney injury Nephrology is also recommending outpatient kidney biopsy. 10/03/2024 Awaiting for spot for outpatient hemodialysis. To receive a last session of hemodialysis tomorrow. 10/04/2024 Another round of hemodialysis today, awaiting serology results of hepatitis-B Case management working on setting up hemodialysis at [place] Fluid restriction 1.5 L a day 10/06/2024 HD today, Case management working on helping set up by chair time for him for outpatient dialysis at [place], awaiting insurance auth Hypertensive emergency POA, resolved Blood pressure soft, DC blood pressure medications Has been transferred from [place] with a nicardipine drip, continue drip for now Home blood pressure medication Coreg 10/01/2024 Nicardipine drip discontinued Transitioned to amlodipine 10 and lisinopril 20 overnight BP stable so far, we will continue to monitor Resume Home medication Coreg 25 p.o. b.i.d. and losartan 25 p.o. daily, DC amlodipine and lisinopril 10/02/2024 Blood pressures have been soft, morning dose of Coreg and losartan held, if BP continues to remain soft can decrease/DC the dose of Coreg to 6.25 BID. 10/03/2024 Blood pressure: 104/63. We will probably DC losartan and decrease dose of Coreg for discharge. 10/04/2024 DC losartan and Coreg Chronic CHF preserved [place] BNP 19194, likely secondary to EDGARDO EKG shows sinus tachycardia, no ST/T-wave changes. Possible Left ventricular hypertrophy. He is fine crackles bilaterally, mild edema in the bilateral hands and abdomen is distended and tight no lower extremity edema. He is currently in significant EDGARDO with metabolic acidosis continue bicarb drip for now Reassess fluid status in a.m. 10/02/2024 EF is preserved 50-55%, RVSP 51 No signs of fluid overload Fluids per science professor recommendations DC bicarb drip 10/03/2024 We will continue Coreg in a decreased dose at discharge. 10/04/2024 DC Coreg due to soft blood pressures Lasix and fluid restriction per Nephrology recommendations History of hypertension History of CKD Code Status: Full code DVT prophylaxis: Heparin Analgesia/sedation: None Line/tube: PIV GI prophylaxis: None Nutrition: Renal diet Prognosis: Guarded Disposition: Continue medical management. Awaiting for spot for outpatient hemodialysis. He has a chair time at 2:55 p.m. Friday at [facility], awaiting insurance authorization. Jessica Julio IM Resident, PGY 2 Date of Service: Oct 06, 2024 Billing Provider: KIA MULLIGAN MD Common Visit Codes: [id number] INP/OBS CARE(HIGH) JESSICA JULIO RES Oct 06, 2024 14:06 KIA MULLIGAN MD Oct 07, 2024 21:21
[2024-10-06 19:36] LABS: ANTINUCLEAR ANTIBODIES Negative (Negative)
[2024-10-07] VITALS (7 sets, daily range): BP systolic 114–148; BP diastolic 77–104; PULSE 85–95; RESP 15–20; TEMP 97.1–97.8; O2SAT 95–100
[2024-10-07 04:42] LABS: BASOPHILS # (AUTO) 0.1 X10'3 (0-0.2); BASOPHILS % (AUTO) 0.8 % (0-1); EOSINOPHILS # (AUTO) 0.3 X10'3 (0-0.9); EOSINOPHILS % (AUTO) 2.5 % (0-6); HEMOGLOBIN 9.4 g/dl (14.0-17.9); LYMPHOCYTES # (AUTO) 3.1 X10'3 (1.1-4.8); MEAN CORPUSCULAR HGB CONC 33.7 g/dL (33.0-36.5); MEAN CORPUSCULAR VOLUME 80.2 FL (78-98); MEAN PLATELET VOLUME 7.2 FL (7.4-10.4); MONOCYTES % (AUTO) 8.1 % (2-12); NEUTROPHILS # (AUTO) 7.5 X10'3 (1.8-7.7); NEUTROPHILS % (AUTO) 62.6 % (42-75); PLATELET COUNT 262 X10'3 (140-440); RED BLOOD COUNT 3.49 X10'6 (4.70-6.10); RED CELL DISTRIBUTION WIDTH 13.6 % (11.5-14.5); WHITE BLOOD COUNT 12.1 X10'3 (4.5-11.0)
[2024-10-07 05:06] LABS: ALBUMIN 2.8 G/DL (3.4-5.0); ANION GAP 10 (8-16); BLOOD UREA NITROGEN 43 MG/DL (7-18); BUN/CREATININE RATIO 5.2 (10.0-20.0); CALCIUM 8.7 MG/DL (8.5-10.1); CHLORIDE 96 MMOL/L (99-107); GLUCOSE 109 MG/DL (70-104); POTASSIUM 4.2 MMOL/L (3.5-5.1); SODIUM 131 MMOL/L (135-145); TOTAL CARBON DIOXIDE 24.9 MMOL/L (24-32); eCRCL 12 ML/MIN; eGFR 7 ML/MIN
--- NOTE | 2024-10-07 06:17 | PROGRESS NOTE ---
Progress Note Dictate Providers to CC ~ Antibiotic Ordered?: N/A Subjective Subjective Doing well today, new start iHD, ok to discharge when he gets a dialysis chair schedule Objective Vitals Vital Signs Date Time Temp Pulse Resp B/P (MAP) Pulse Ox O2 Delivery O2 Flow Rate FiO2 10/07/24 06:00 97.8 85 15 114/77 (89) 96 Room Air 10/06/24 15:47 0 21 General: Well appearing, NAD, appears comfortable Neck: No JVD, or bruits CV: RRR w/o murmur, pulses 2+ symmetrical, no edema Pulm: CTA Bilateral no wheezes Abd: + BS, NT Musc: Ambulates without assistance, strength 5/5 in all major muscle groups Lab Results: 10/07/24 0418 10/07/24 0418 Other Results I & O 10/07/24 07:00 Intake Total 620 ml Output Total 1000 ml Balance -380 ml Intake Oral 120 ml Hemodialysis 500 ml Hemodialysis 1000 ml # Voids 1 Problem\Assessment\Plan Problems/Diagnosis: (1) EDGARDO (acute kidney injury) Assessment & Plan: His CKD is likely progression, had a GFR of 15 last year, has tunneled dialysis catheter in place as he had his first 3 sessions of dialysis without complications, we will plan on doing his usual dialysis tomorrow, working on a chair in the community soon as we have a dialysis time and schedule we can discharge him home with follow-up at the dialysis center (2) ESRD (end stage renal disease) Assessment & Plan: We discussed some simple dietary requirements with dialysis to include low potassium low phosphorus diet, watch his fluid intake between dialysis sessions I have reviewed, all relevent chart notes, nurses notes, labs for this prescription iHD 3 hours Access TDC Na 140 K 3 HCO3 35 Ca 2.5 UF 0-2 as tolerated Albumin N Mannitol N LALITO 0K units with dialysis (3) Hypertension Assessment & Plan: Well controlled at goal of less than 140/90 - Continue Losartan and Carvedilol, if not at goal assess dry weight and consider CCB Sepsis Screening Skin Color: Normal WALL,SLIM Garcia III DO Oct 07, 2024 06:17
--- NOTE | 2024-10-07 17:36 | PROGRESS NOTE- Residence ---
Progress Note - Resident Providers to CC Resident Creating Document: JESSICA JULIO RES ~ Antibiotic Timeout Antibiotic Ordered?: No Subjective Patient seen and examined at bedside. No concerns or complaints at this time. Awaiting insurance auth. Objective Vital Signs Date Time Temp Pulse Resp B/P (MAP) Pulse Ox O2 Delivery O2 Flow Rate FiO2 10/07/24 10:39 99 Room Air* 0 21 10/07/24 10:00 97.8 87 17 132/86 (101) Result Diagram: 10/07/2441710/07/24417 General: Awake and Alert, no acute distress. Currently Saturating well on room air. HEENT: Conjunctiva pink, Sclera clear, Mucus Membranes moist. Neck: Supple without masses and tenderness. Chest: Right-sided TDC in place. Resp: Unlabored. Equal breath sounds bilaterally Heart: Regular rhythm, normal S1 and S2, no rub, murmur or gallop. Abdomen: Abdomen distended and tight, normal bowel sounds x4. No guarding or rigidity. Extremities: Normal ROM, no swelling, nontender. No cyanosis,clubbing or edema. SANDER SETTER: No gross motor or sensory abnormalities. Skin: Warm and Dry. Assessment Assessment 39-year-old male with history of congestive heart failure, CKD, hypertension is transferred to the ED from [facility] for higher level of care and management for hypertension, EDGARDO on CKD and CHF. He presented to the ED at [place] with chief complaints of worsening shortness of breath, weakness in the fingers and feet since the past three days. Plan Plan EDGARDO on CKD likely secondary to ATN, creatinine 11.06 (creatinine range in 2023: 1.9-2.3-2.1-2.2 -2.5) Elevated anion gap metabolic acidosis Hyperphosphatemia BUN 74, creatinine 11.06, GFR 5, anion gap 19 Currently saturating well on room air Started bicarb drip at 100 mL/hour Follow up with urine spot studies and renal ultrasound Follow up with [facility] and Nephrology consulted, appreciate recommendations 10/01/2024 Renal ultrasound echogenic renal cortices with mild renal disease. Echo EF 50-55%, RVSP 51 Creatinine 11.[address] Daley for TDC He will be started on hemodialysis soon REVIEW OF RECORDS FROM [place] Looks like he has been to [facility] multiple times in the last one year (May 2023, July 2023, November 2023, January 2024) for complaints of hypertension, shortness of breath, CHF and EDGARDO. His creatinine at that time was in the range 1.9-2.3-2.1-2.2 -2.5. In January 2024 angiogram was done, and later developed a small hematoma in the groin, he had the CTA of the abdomen which showed a small hematoma at the right common femoral artery. No pseudoaneurysm or hemorrhage. Creatinine at this time was around 2.1-2.2. 10/02/2024 1st episode of hemodialysis on 10/01/2024 Going to be dialyzed today and tomorrow Urinalysis shows findings positive for proteinuria and hematuria, possibility of underlying nephritic syndrome, awaiting serologic study results Doppler kidneys: Slightly elevated left renal artery resistive index could represent renal artery stenosis, recommended CT angio of the abdomen, cannot be done at this time with his acute kidney injury Nephrology is also recommending outpatient kidney biopsy. 10/03/2024 Awaiting for spot for outpatient hemodialysis. To receive a last session of hemodialysis tomorrow. 10/04/2024 Another round of hemodialysis today, awaiting serology results of hepatitis-B Case management working on setting up hemodialysis at [place] Fluid restriction 1.5 L a day 10/07/2024 HD tomorrow, Case management working on helping set up by chair time for him for outpatient dialysis at [place], awaiting insurance auth Hypertensive emergency POA, resolved Blood pressure soft, DC blood pressure medications Has been transferred from [place] with a nicardipine drip, continue drip for now Home blood pressure medication Coreg 10/01/2024 Nicardipine drip discontinued Transitioned to amlodipine 10 and lisinopril 20 overnight BP stable so far, we will continue to monitor Resume Home medication Coreg 25 p.o. b.i.d. and losartan 25 p.o. daily, DC amlodipine and lisinopril 10/02/2024 Blood pressures have been soft, morning dose of Coreg and losartan held, if BP continues to remain soft can decrease/DC the dose of Coreg to 6.25 BID. 10/03/2024 Blood pressure: 104/63. We will probably DC losartan and decrease dose of Coreg for discharge. 10/04/2024 DC losartan and Coreg Chronic CHF preserved EF BNP 22643, likely secondary to EDGARDO EKG shows sinus tachycardia, no ST/T-wave changes. Possible Left ventricular hypertrophy. He is fine crackles bilaterally, mild edema in the bilateral hands and abdomen is distended and tight no lower extremity edema. He is currently in significant EDGARDO with metabolic acidosis continue bicarb drip for now Reassess fluid status in a.m. 10/02/2024 EF is preserved 50-55%, RVSP 51 No signs of fluid overload Fluids per job lithographer recommendations DC bicarb drip 10/03/2024 We will continue Coreg in a decreased dose at discharge. 10/04/2024 DC Coreg due to soft blood pressures Lasix and fluid restriction per Nephrology recommendations History of hypertension History of CKD Code Status: Full code DVT prophylaxis: Heparin Analgesia/sedation: None Line/tube: PIV GI prophylaxis: None Nutrition: Renal diet Prognosis: Guarded Disposition: Continue medical management. Awaiting for spot for outpatient hemodialysis. Friday at [facility], awaiting insurance authorization. Jessica Julio IM Resident, PGY 2 Date of Service: Oct 07, 2024 Billing Provider: KIA MULLIGAN MD Common Visit Codes: [id number] INP/OBS CARE(HIGH) JESSICA JULIO, RES Oct 07, 2024 17:36 KIA MULLIGAN MD Oct 07, 2024 21:21
[2024-10-08] VITALS (13 sets, daily range): BP systolic 99–142; BP diastolic 61–91; PULSE 78–99; RESP 16–18; TEMP 96.9–98.7; O2SAT 94–100
[2024-10-08 05:03] LABS: BASOPHILS # (AUTO) 0.1 X10'3 (0-0.2); BASOPHILS % (AUTO) 0.9 % (0-1); EOSINOPHILS # (AUTO) 0.4 X10'3 (0-0.9); EOSINOPHILS % (AUTO) 3.8 % (0-6); HEMATOCRIT 28.4 % (42.0-52.0); HEMOGLOBIN 9.4 g/dl (14.0-17.9); LYMPHOCYTES # (AUTO) 2.5 X10'3 (1.1-4.8); LYMPHOCYTES % (AUTO) 24.2 % (21-51); MEAN CORPUSCULAR HEMOGLOBIN 26.8 PG (27.0-31.0); MEAN CORPUSCULAR HGB CONC 33.2 g/dL (33.0-36.5); MEAN CORPUSCULAR VOLUME 80.9 FL (78-98); MEAN PLATELET VOLUME 7.2 FL (7.4-10.4); MONOCYTES # (AUTO) 0.9 X10'3 (0-0.9); MONOCYTES % (AUTO) 8.4 % (2-12); NEUTROPHILS # (AUTO) 6.5 X10'3 (1.8-7.7); NEUTROPHILS % (AUTO) 62.7 % (42-75); PLATELET COUNT 256 X10'3 (140-440); RED CELL DISTRIBUTION WIDTH 13.5 % (11.5-14.5); WHITE BLOOD COUNT 10.3 X10'3 (4.5-11.0)
[2024-10-08 05:18] LABS: ALBUMIN 2.9 G/DL (3.4-5.0); ANION GAP 15 (8-16); BLOOD UREA NITROGEN 65 MG/DL (7-18); BUN/CREATININE RATIO 6.4 (10.0-20.0); CALCIUM 8.5 MG/DL (8.5-10.1); CHLORIDE 96 MMOL/L (99-107); CREATININE 10.17 MG/DL (0.60-1.10); GLUCOSE 112 MG/DL (70-104); POTASSIUM 4.8 MMOL/L (3.5-5.1); SODIUM 134 MMOL/L (135-145); eCRCL 10 ML/MIN; eGFR 6 ML/MIN
--- NOTE | 2024-10-08 06:15 | PROGRESS NOTE ---
Progress Note Dictate Providers to CC ~ Antibiotic Ordered?: N/A Subjective Subjective Doing well, has a possible chair in the community in [place], I was notified that he would not be accepted until I speak with the accepting game technician Objective Vitals Vital Signs Date Time Temp Pulse Resp B/P (MAP) Pulse Ox O2 Delivery O2 Flow Rate FiO2 10/09/24 09:57 95.7 93 16 111/67 (82) 96 10/09/24 06:06 Room Air 10/07/24 10:39 0 21 Appears comfortable RRR w/o murmur CTA B +BS, NT Lab Results: 10/09/24 0456 10/09/24 0456 Other Results I & O 10/08/24 07:00 Intake Total 800 ml Balance 800 ml Intake Oral 800 ml # Voids 5 # Bowel Movements 1 Problem\Assessment\Plan Problems/Diagnosis: (1) EDGARDO (acute kidney injury) Assessment & Plan: His CKD is likely progression, had a GFR of 15 last year, has tunneled dialysis catheter in place as he had his first 3 sessions of dialysis without complications, we will plan on doing his usual dialysis today, working on a chair in the community soon as we have a dialysis time and schedule we can discharge him home with follow-up at the dialysis center (2) ESRD (end stage renal disease) Assessment & Plan: We discussed some simple dietary requirements with dialysis to include low potassium low phosphorus diet, watch his fluid intake between dialysis sessions, continue M, W, F schedule I have reviewed, all relevant chart notes, nurses notes, labs for this prescription iHD 3 hours Access TDC Na 140 K 3 HCO3 35 Ca 2.5 UF 0-2 as tolerated Albumin N Mannitol N LALITO 0K units with dialysis (3) Hypertension Assessment & Plan: Well controlled not at goal of less than 140/90 - Start Losartan, not at goal assess dry weight and consider CCB Additional Plan Spoke with Dr. Sullivan, she will accept patient into her paractice ok to discharge when chair and time are arranged with dialysis center Sepsis Screening Skin Color: Normal WALL,SLIM Garcia III DO Oct 08, 2024 06:15
[2024-10-08] MEDS ORDERED: normal saline 1000ml 100 ML IV PRN (06:20)
[2024-10-08] MEDS: losartan 50mg tablet PO SCH (08:34)
[2024-10-08] MEDS: NIFEdipine XL 30mg tablet PO SCH (08:35)
[2024-10-08] MEDS: heparin 1,000 units/ml 10ml inj HE ONE ×2 (16:12)
--- NOTE | 2024-10-08 17:26 | PROGRESS NOTE- Residence ---
Progress Note - Resident Providers to CC Resident Creating Document: JESSICA JULIO RES ~ Antibiotic Timeout Antibiotic Ordered?: No Subjective Patient seen and examined at bedside. No concerns or complaints at this time. Objective Vital Signs Date Time Temp Pulse Resp B/P (MAP) Pulse Ox O2 Delivery O2 Flow Rate FiO2 10/08/24 15:20 97.9 89 16 104/61 (75) 98 Room Air 10/07/24 10:39 0 21 Result Diagram: 10/08/2443710/08/24437 General: Awake and Alert, no acute distress. Currently Saturating well on room air. HEENT: Conjunctiva pink, Sclera clear, Mucus Membranes moist. Neck: Supple without masses and tenderness. Chest: Right-sided TDC in place. Resp: Unlabored. Equal breath sounds bilaterally Heart: Regular rhythm, normal S1 and S2, no rub, murmur or gallop. Abdomen: Abdomen distended and tight, normal bowel sounds x4. No guarding or rigidity. Extremities: Normal ROM, no swelling, nontender. No cyanosis,clubbing or edema. INTEGRATION AIDE: No gross motor or sensory abnormalities. Skin: Warm and Dry. Assessment Assessment 39-year-old male with history of congestive heart failure, CKD, hypertension is transferred to the ED from [facility] for higher level of care and management for hypertension, EDGARDO on CKD and CHF. He presented to the ED at [place] with chief complaints of worsening shortness of breath, weakness in the fingers and feet since the past three days. Plan Plan EDGARDO on CKD likely secondary to ATN, creatinine 11.06 (creatinine range in 2023: 1.9-2.3-2.1-2.2 -2.5) Elevated anion gap metabolic acidosis Hyperphosphatemia BUN 74, creatinine 11.06, GFR 5, anion gap 19 Currently saturating well on room air Started bicarb drip at 100 mL/hour Follow up with urine spot studies and renal ultrasound Follow up with [facility] and Nephrology consulted, appreciate recommendations 10/01/2024 Renal ultrasound echogenic renal cortices with mild renal disease. Echo EF 50-55%, RVSP 51 Creatinine 11.2 [address] Daley for TDC He will be started on hemodialysis soon REVIEW OF RECORDS FROM [place] Looks like he has been to [facility] multiple times in the last one year (May 2023, July 2023, November 2023, January 2024) for complaints of hypertension, shortness of breath, CHF and EDGARDO. His creatinine at that time was in the range 1.9-2.3-2.1-2.2 -2.5. In January 2024 angiogram was done, and later developed a small hematoma in the groin, he had the CTA of the abdomen which showed a small hematoma at the right common femoral artery. No pseudoaneurysm or hemorrhage. Creatinine at this time was around 2.1-2.2. 10/02/2024 1st episode of hemodialysis on 10/01/2024 Going to be dialyzed today and tomorrow Urinalysis shows findings positive for proteinuria and hematuria, possibility of underlying nephritic syndrome, awaiting serologic study results Doppler kidneys: Slightly elevated left renal artery resistive index could represent renal artery stenosis, recommended CT angio of the abdomen, cannot be done at this time with his acute kidney injury Nephrology is also recommending outpatient kidney biopsy. 10/03/2024 Awaiting for spot for outpatient hemodialysis. To receive a last session of hemodialysis tomorrow. 10/04/2024 Another round of hemodialysis today, awaiting serology results of hepatitis-B Case management working on setting up hemodialysis at [facility] Fluid restriction 1.5 L a day 10/08/2024 HD today, Case management working on helping set up by chair time for him for outpatient dialysis at [facility], awaiting insurance auth Hypertensive emergency POA, resolved Blood pressure soft, DC blood pressure medications Has been transferred from [place] with a nicardipine drip, continue drip for now Home blood pressure medication Coreg 10/01/2024 Nicardipine drip discontinued Transitioned to amlodipine 10 and lisinopril 20 overnight BP stable so far, we will continue to monitor Resume Home medication Coreg 25 p.o. b.i.d. and losartan 25 p.o. daily, DC amlodipine and lisinopril 10/02/2024 Blood pressures have been soft, morning dose of Coreg and losartan held, if BP continues to remain soft can decrease/DC the dose of Coreg to 6.25 BID. 10/03/2024 Blood pressure: 104/63. We will probably DC losartan and decrease dose of Coreg for discharge. 10/04/2024 DC losartan and Coreg Chronic CHF preserved EF BNP 29739, likely secondary to EDGARDO EKG shows sinus tachycardia, no ST/T-wave changes. Possible Left ventricular hypertrophy. He is fine crackles bilaterally, mild edema in the bilateral hands and abdomen is distended and tight no lower extremity edema. He is currently in significant EDGARDO with metabolic acidosis continue bicarb drip for now Reassess fluid status in a.m. 10/02/2024 EF is preserved 50-55%, RVSP 51 No signs of fluid overload Fluids per casing in line setter recommendations DC bicarb drip 10/03/2024 We will continue Coreg in a decreased dose at discharge. 10/04/2024 DC Coreg due to soft blood pressures Lasix and fluid restriction per Nephrology recommendations History of hypertension History of CKD Code Status: Full code DVT prophylaxis: Heparin Analgesia/sedation: None Line/tube: PIV GI prophylaxis: None Nutrition: Renal diet Prognosis: Guarded Disposition: Continue medical management. Awaiting for spot for outpatient hemodialysis. Friday at [facility], awaiting insurance authorization. Jessica Julio IM Resident, PGY 2 Date of Service: Oct 08, 2024 Billing Provider: KIA MULLIGAN MD Common Visit Codes: [id number] INP/OBS CARE(HIGH) JESSICA JULIO, RES Oct 08, 2024 17:26 KIA MULLIGAN MD Oct 08, 2024 21:16
[2024-10-09] VITALS (7 sets, daily range): BP systolic 103–131; BP diastolic 67–87; PULSE 84–101; RESP 14–16; TEMP 95.7–98.7; O2SAT 96–98
[2024-10-09 06:08] LABS: BASOPHILS # (AUTO) 0.1 X10'3 (0-0.2); BASOPHILS % (AUTO) 0.8 % (0-1); EOSINOPHILS # (AUTO) 0.3 X10'3 (0-0.9); EOSINOPHILS % (AUTO) 3.2 % (0-6); HEMATOCRIT 30.2 % (42.0-52.0); LYMPHOCYTES # (AUTO) 2.4 X10'3 (1.1-4.8); MEAN CORPUSCULAR HEMOGLOBIN 26.8 PG (27.0-31.0); MEAN CORPUSCULAR VOLUME 81.2 FL (78-98); MEAN PLATELET VOLUME 7.5 FL (7.4-10.4); MONOCYTES # (AUTO) 0.9 X10'3 (0-0.9); NEUTROPHILS # (AUTO) 6.8 X10'3 (1.8-7.7); PLATELET COUNT 269 X10'3 (140-440); RED BLOOD COUNT 3.72 X10'6 (4.70-6.10); RED CELL DISTRIBUTION WIDTH 13.9 % (11.5-14.5); WHITE BLOOD COUNT 10.6 X10'3 (4.5-11.0)
[2024-10-09 06:18] LABS: ALBUMIN 3.2 G/DL (3.4-5.0); ANION GAP 15 (8-16); BLOOD UREA NITROGEN 52 MG/DL (7-18); BUN/CREATININE RATIO 6.2 (10.0-20.0); CALCIUM 8.8 MG/DL (8.5-10.1); CHLORIDE 95 MMOL/L (99-107); CREATININE 8.36 MG/DL (0.60-1.10); GLUCOSE 116 MG/DL (70-104); POTASSIUM 4.5 MMOL/L (3.5-5.1); SODIUM 134 MMOL/L (135-145); TOTAL CARBON DIOXIDE 24.3 MMOL/L (24-32); eCRCL 12 ML/MIN; eGFR 7 ML/MIN
[2024-10-09] MEDS ORDERED: normal saline 1000ml 100 ML IV PRN (11:20)
[2024-10-09] MEDS ORDERED: heparin 1,000 units/ml 10ml inj HE ONE ×2 (11:25)
--- NOTE | 2024-10-09 11:27 | PROGRESS NOTE ---
Progress Note Dictate Providers to CC ~ Antibiotic Ordered?: N/A Subjective Subjective Doing well, we plan on dialyzing Friday Objective Vitals Vital Signs Date Time Temp Pulse Resp B/P (MAP) Pulse Ox O2 Delivery O2 Flow Rate FiO2 10/09/24 09:57 95.7 93 16 111/67 (82) 96 10/09/24 08:00 Room Air 10/07/24 10:39 0 21 General: Well appearing, well nourished, in no distress. Oriented x 3, Neck: Supple, without JVD Heart: Regular rate and rhythm, no murmur Lungs: Clear to auscultation and percussion Abdomen: Bowel sounds normal, no tenderness, organomegaly, masses, or hernia Extremities: No cyanosis, no edema, peripheral pulses intact Neurologic: Sensation to touch, normal. DTRs normal moves all extremities spontaneously. Lab Results: 10/09/24 0456 10/09/24 0456 Other Results I & O 10/09/24 07:00 Intake Total 600 ml Output Total 2500 ml Balance -1900 ml Intake Oral 100 ml Hemodialysis 500 ml Hemodialysis 2500 ml # Voids 3 Problem\Assessment\Plan Problems/Diagnosis: (1) EDGARDO (acute kidney injury) Assessment & Plan: His CKD is likely progression, had a GFR of 15 last year, has tunneled dialysis catheter in place as he had his first 3 sessions of dialysis without complications, we will plan on doing his usual dialysis Friday, working on a chair in the community soon as we have a dialysis time and schedule we can discharge him home with follow-up at the dialysis center (2) ESRD (end stage renal disease) Assessment & Plan: We discussed some simple dietary requirements with dialysis to include low potassium low phosphorus diet, watch his fluid intake between dialysis sessions, continue M, W, F schedule I have reviewed, all relevant chart notes, nurses notes, labs for this prescription iHD 3 hours Access TDC Na 140 K 3 HCO3 35 Ca 2.5 UF 0-2 as tolerated Albumin N Mannitol N LALITO 0K units with dialysis (3) Hypertension Assessment & Plan: Well controlled at goal of less than 140/90 Continue Losartan, if not at goal assess dry weight and consider CCB Additional Plan Spoke with Dr. Sullivan from [facility] she will accept him, ok to discharge to home with follow-up at his dialysis cli[facility] Sepsis Screening Skin Color: Normal WALL,SLIM M III DO Oct 09, 2024 11:27
--- NOTE | 2024-10-09 11:52 | PROGRESS NOTE- Residence ---
Progress Note - Resident Providers to CC Resident Creating Document: JESSICA JULIO RES ~ Antibiotic Timeout Antibiotic Ordered?: No Subjective Patient seen and examined at bedside. No concerns or complaints at this time. Objective Vital Signs Date Time Temp Pulse Resp B/P (MAP) Pulse Ox O2 Delivery O2 Flow Rate FiO2 10/09/24 09:57 95.7 93 16 111/67 (82) 96 10/09/24 08:00 Room Air 10/07/24 10:39 0 21 Result Diagram: 10/09/24 0456 10/09/24 0456 General: Awake and Alert, no acute distress. Currently Saturating well on room air. HEENT: Conjunctiva pink, Sclera clear, Mucus Membranes moist. Neck: Supple without masses and tenderness. Chest: Right-sided TDC in place. Resp: Unlabored. Equal breath sounds bilaterally Heart: Regular rhythm, normal S1 and S2, no rub, murmur or gallop. Abdomen: Abdomen distended and tight, normal bowel sounds x4. No guarding or rigidity. Extremities: Normal ROM, no swelling, nontender. No cyanosis,clubbing or edema. 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 Skin: Warm and Dry. Assessment Assessment 39-year-old male with history of congestive heart failure, CKD, hypertension is transferred to the ED from [facility] for higher level of care and management for hypertension, EDGARDO on CKD and CHF. He presented to the ED at [place] with chief complaints of worsening shortness of breath, weakness in the fingers and feet since the past three days. Plan Plan EDGARDO on CKD likely secondary to ATN, creatinine 11.06 (creatinine range in 2023: 1.9-2.3-2.1-2.2 -2.5) Elevated anion gap metabolic acidosis Hyperphosphatemia BUN 74, creatinine 11.06, GFR 5, anion gap 19 Currently saturating well on room air Started bicarb drip at 100 mL/hour Follow up with urine spot studies and renal ultrasound Follow up with [facility]ox and Nephrology consulted, appreciate recommendations 10/01/2024 Renal ultrasound echogenic renal cortices with mild renal disease. Echo EF 50-55%, RVSP 51 Creatinine 11.2 [address] Daley for TDC He will be started on hemodialysis soon REVIEW OF RECORDS FROM [place] Looks like he has been to [facility] multiple times in the last one year (May 2023, July 2023, November 2023, January 2024) for complaints of hypertension, shortness of breath, CHF and EDGARDO. His creatinine at that time was in the range 1.9-2.3-2.1-2.2 -2.5. In January 2024 angiogram was done, and later developed a small hematoma in the groin, he had the CTA of the abdomen which showed a small hematoma at the right common femoral artery. No pseudoaneurysm or hemorrhage. Creatinine at this time was around 2.1-2.2. 10/02/2024 1st episode of hemodialysis on 10/01/2024 Going to be dialyzed today and tomorrow Urinalysis shows findings positive for proteinuria and hematuria, possibility of underlying nephritic syndrome, awaiting serologic study results Doppler kidneys: Slightly elevated left renal artery resistive index could represent renal artery stenosis, recommended CT angio of the abdomen, cannot be done at this time with his acute kidney injury Nephrology is also recommending outpatient kidney biopsy. 10/03/2024 Awaiting for spot for outpatient hemodialysis. To receive a last session of hemodialysis tomorrow. 10/04/2024 Another round of hemodialysis today, awaiting serology results of hepatitis-B Case management working on setting up hemodialysis at [facility] Fluid restriction 1.5 L a day 10/09/2024 HD today, Case management working on helping set up by chair time for him for outpatient dialysis at [place], awaiting insurance auth Hypertensive emergency POA, resolved Blood pressure soft, DC blood pressure medications Has been transferred from [place] with a nicardipine drip, continue drip for now Home blood pressure medication Coreg 10/01/2024 Nicardipine drip discontinued Transitioned to amlodipine 10 and lisinopril 20 overnight BP stable so far, we will continue to monitor Resume Home medication Coreg 25 p.o. b.i.d. and losartan 25 p.o. daily, DC amlodipine and lisinopril 10/02/2024 Blood pressures have been soft, morning dose of Coreg and losartan held, if BP continues to remain soft can decrease/DC the dose of Coreg to 6.25 BID. 10/03/2024 Blood pressure: 104/63. We will probably DC losartan and decrease dose of Coreg for discharge. 10/04/2024 DC losartan and Coreg Chronic CHF preserved EF BNP 36690, likely secondary to EDGARDO EKG shows sinus tachycardia, no ST/T-wave changes. Possible Left ventricular hypertrophy. He is fine crackles bilaterally, mild edema in the bilateral hands and abdomen is distended and tight no lower extremity edema. He is currently in significant EDGARDO with metabolic acidosis continue bicarb drip for now Reassess fluid status in a.m. 10/02/2024 EF is preserved 50-55%, RVSP 51 No signs of fluid overload Fluids per bank cashier recommendations DC bicarb drip 10/03/2024 We will continue Coreg in a decreased dose at discharge. 10/04/2024 DC Coreg due to soft blood pressures Lasix and fluid restriction per Nephrology recommendations History of hypertension History of CKD Code Status: Full code DVT prophylaxis: Heparin Analgesia/sedation: None Line/tube: PIV GI prophylaxis: None Nutrition: Renal diet Prognosis: Guarded Disposition: Continue medical management. Awaiting for spot for outpatient hemodialysis. Friday at [facility], awaiting insurance authorization. Jessica Julio IM Resident, PGY 2 Date of Service: Oct 09, 2024 Billing Provider: KIA MULLIGAN MD Common Visit Codes: [id number] INP/OBS CARE(HIGH) JESSICA JULIO, RES Oct 09, 2024 11:52 KIA MULLIGAN MD Oct 11, 2024 12:03
[2024-10-10 06:00] VITALS: BP 131/84; PULSE 89; RESP 16; TEMP 98; O2SAT 98
[2024-10-10 06:16] LABS: BASOPHILS # (AUTO) 0.1 X10'3 (0-0.2); BASOPHILS % (AUTO) 0.6 % (0-1); EOSINOPHILS # (AUTO) 0.3 X10'3 (0-0.9); HEMATOCRIT 29.5 % (42.0-52.0); HEMOGLOBIN 9.9 g/dl (14.0-17.9); LYMPHOCYTES # (AUTO) 2.6 X10'3 (1.1-4.8); LYMPHOCYTES % (AUTO) 25.3 % (21-51); MEAN CORPUSCULAR HEMOGLOBIN 27.2 PG (27.0-31.0); MEAN CORPUSCULAR HGB CONC 33.7 g/dL (33.0-36.5); MEAN CORPUSCULAR VOLUME 80.8 FL (78-98); MEAN PLATELET VOLUME 7.4 FL (7.4-10.4); MONOCYTES # (AUTO) 0.8 X10'3 (0-0.9); MONOCYTES % (AUTO) 7.6 % (2-12); NEUTROPHILS # (AUTO) 6.5 X10'3 (1.8-7.7); NEUTROPHILS % (AUTO) 63.5 % (42-75); PLATELET COUNT 248 X10'3 (140-440); RED BLOOD COUNT 3.64 X10'6 (4.70-6.10); RED CELL DISTRIBUTION WIDTH 13.5 % (11.5-14.5); WHITE BLOOD COUNT 10.2 X10'3 (4.5-11.0)
[2024-10-10 06:48] LABS: ANION GAP 16 (8-16); BLOOD UREA NITROGEN 67 MG/DL (7-18); BUN/CREATININE RATIO 6.8 (10.0-20.0); CALCIUM 8.7 MG/DL (8.5-10.1); CHLORIDE 95 MMOL/L (99-107); CREATININE 9.79 MG/DL (0.60-1.10); GLUCOSE 111 MG/DL (70-104); POTASSIUM 4.6 MMOL/L (3.5-5.1); SODIUM 132 MMOL/L (135-145); TOTAL CARBON DIOXIDE 20.9 MMOL/L (24-32); eCRCL 10 ML/MIN; eGFR 6 ML/MIN
[2024-10-10 08:00] VITALS: RESP 16; O2SAT 98
[2024-10-10 10:00] VITALS: BP 135/84; PULSE 103; RESP 17; TEMP 97.6; O2SAT 97
--- NOTE | 2024-10-10 16:55 | PROGRESS NOTE ---
Daily Progress Note Providers to CC ~ Antibiotic Timeout Antibiotic Ordered?: No Subjective Awaiting for spot for outpatient hemodialysis Friday at [facility], awaiting insurance authorization. looks Comfortable no new concerns Objective Vital Signs Date Time Temp Pulse Resp B/P (MAP) Pulse Ox O2 Delivery O2 Flow Rate FiO2 10/10/24 10:00 97.6 103 17 135/84 (101) 97 Room Air 10/09/24 22:00 0.0 10/07/24 10:39 21 Result Diagram: 10/10/24 0517 10/10/24 0517 General-patient not in any acute distress, alert awake oriented, chronically ill-appearing/age-appropriate/looks comfortable/lethargic HEENT-atraumatic normocephalic, neck supple without elevated JVD, no thyromegaly or carotid bruit. No lymphadenopathy bilaterally. Dialysis catheter present over right side of the neck Eyes-no icterus or pallor seen in eyes Chest-clear to auscultation bilaterally, breathing nonlabored no tachypnea, no wheezing, no crepitation, no crackles. Heart-S1-S2 normal, regular heart rate no murmur Abdomen bowel sounds positive on auscultation, soft nondistended nontender no guarding, no rigidity Skin no active skin rash Neurology-grossly intact, nonfocal alert awake oriented Extremity- no pedal edema able to move all 4 extremities Psychiatry - patient is not confused or agitated cooperated during physical examination Problem\Assessment\Plan EDGARDO on CKD likely secondary to ATN, creatinine 11.06 (creatinine range in 2023: 1.9-2.3-2.1-2.2 -2.5) Elevated anion gap metabolic acidosis Hyperphosphatemia BUN 74, creatinine 11.06, GFR 5, anion gap 19 Currently saturating well on room air Started bicarb drip at 100 mL/hour Follow up with urine spot studies and renal ultrasound Follow up with [facility] and Nephrology consulted, appreciate recommendations 10/01/2024 Renal ultrasound echogenic renal cortices with mild renal disease. Echo EF 50-55%, RVSP 51 Creatinine 11.[address] Daley for TDC He will be started on hemodialysis soon REVIEW OF RECORDS FROM [place] Looks like he has been to [facility] multiple times in the last one year (May 2023, July 2023, November 2023, January 2024) for complaints of hypertension, shortness of breath, CHF and EDGARDO. His creatinine at that time was in the range 1.9-2.3-2.1-2.2 -2.5. In January 2024 angiogram was done, and later developed a small hematoma in the groin, he had the CTA of the abdomen which showed a small hematoma at the right common femoral artery. No pseudoaneurysm or hemorrhage. Creatinine at this time was around 2.1-2.2. 10/02/2024 1st episode of hemodialysis on 10/01/2024 Going to be dialyzed today and tomorrow Urinalysis shows findings positive for proteinuria and hematuria, possibility of underlying nephritic syndrome, awaiting serologic study results Doppler kidneys: Slightly elevated left renal artery resistive index could represent renal artery stenosis, recommended CT angio of the abdomen, cannot be done at this time with his acute kidney injury Nephrology is also recommending outpatient kidney biopsy. 10/03/2024 Awaiting for spot for outpatient hemodialysis. To receive a last session of hemodialysis tomorrow. 10/04/2024 Another round of hemodialysis today, awaiting serology results of hepatitis-B Case management working on setting up hemodialysis at [place] Fluid restriction 1.5 L a day 10/09/2024 HD today, Case management working on helping set up by chair time for him for outpatient dialysis at [place], awaiting insurance auth Hypertensive emergency POA, resolved Blood pressure soft, DC blood pressure medications Has been transferred from [place] with a nicardipine drip, continue drip for now Home blood pressure medication Coreg 10/01/2024 Nicardipine drip discontinued Transitioned to amlodipine 10 and lisinopril 20 overnight BP stable so far, we will continue to monitor Resume Home medication Coreg 25 p.o. b.i.d. and losartan 25 p.o. daily, DC amlodipine and lisinopril 10/02/2024 Blood pressures have been soft, morning dose of Coreg and losartan held, if BP continues to remain soft can decrease/DC the dose of Coreg to 6.25 BID. 10/03/2024 Blood pressure: 104/63. We will probably DC losartan and decrease dose of Coreg for discharge. 10/04/2024 DC losartan and Coreg Chronic CHF preserved EF BNP 41666, likely secondary to EDGARDO EKG shows sinus tachycardia, no ST/T-wave changes. Possible Left ventricular hypertrophy. He is fine crackles bilaterally, mild edema in the bilateral hands and abdomen is distended and tight no lower extremity edema. He is currently in significant EDGARDO with metabolic acidosis continue bicarb drip for now Reassess fluid status in a.m. 10/02/2024 EF is preserved 50-55%, RVSP 51 No signs of fluid overload Fluids per sourcing associate recommendations DC bicarb drip 10/03/2024 We will continue Coreg in a decreased dose at discharge. 10/04/2024 DC Coreg due to soft blood pressures Lasix and fluid restriction per Nephrology recommendations History of hypertension History of CKD Code Status: Full code DVT prophylaxis: Heparin Analgesia/sedation: None Line/tube: PIV GI prophylaxis: None Nutrition: Renal diet Prognosis: Guarded Disposition: Continue medical management. Awaiting for spot for outpatient hemodialysis. Friday at [facility], awaiting insurance authorization. Sepsis Screening Skin Color: Normal Date of Service: Oct 10, 2024 Billing Provider: BREONNA BARTON MD Common Visit Codes: [id number] INP/OBS CARE(HIGH) BREONNA BARTON MD Oct 10, 2024 16:55
[2024-10-10 18:40] VITALS: BP 151/95; PULSE 99; RESP 17; TEMP 97.3; O2SAT 100
[2024-10-10 22:00] VITALS: BP 151/95; PULSE 99; RESP 17; TEMP 97.3; O2SAT 100
[2024-10-11] VITALS (8 sets, daily range): BP systolic 105–128; BP diastolic 68–88; PULSE 76–96; RESP 16–76; TEMP 98.2–98.7; O2SAT 96–100
--- NOTE | 2024-10-11 06:43 | PROGRESS NOTE ---
Progress Note Dictate Providers to CC ~ Antibiotic Ordered?: N/A Subjective Subjective My understanding is he is discharging today, we will dialyze him today before he goes Objective Vitals Vital Signs Date Time Temp Pulse Resp B/P (MAP) Pulse Ox O2 Delivery O2 Flow Rate FiO2 10/10/24 22:00 97.3 99 17 151/95 (113) 100 Room Air 0.0 21 Appears comfortable RRR w/o murmur CTA B + BS, NT No edema Lab Results: 10/10/24 0517 10/10/24 0517 Problem\Assessment\Plan Problems/Diagnosis: (1) EDGARDO (acute kidney injury) Assessment & Plan: His CKD is likely progression, had a GFR of 15 last year, has tunneled dialysis catheter in place as he had his first 3 sessions of dialysis without complications, we will plan on doing his usual dialysis Friday, working on a chair in the community soon as we have a dialysis time and schedule we can discharge him home with follow-up at the dialysis center (2) ESRD (end stage renal disease) Assessment & Plan: We discussed some simple dietary requirements with dialysis to include low potassium low phosphorus diet, watch his fluid intake between dialysis sessions, continue M, W, F schedule I have reviewed, all relevant chart notes, nurses notes, labs for this prescription iHD 3 hours Access TDC Na 140 K 3 HCO3 35 Ca 2.5 UF 0-2 as tolerated Albumin N Mannitol N LALITO 0K units with dialysis (3) Hypertension Assessment & Plan: Well controlled at goal of less than 140/90 Continue Losartan, if not at goal assess dry weight and consider CCB Additional Plan Ok to discharge today after dialysis center chair time confirmed, Dr. Sullivan has accepted him in [place] [facility] Sepsis Screening Skin Color: Normal WALL,SLIM M III DO Oct 11, 2024 06:43
[2024-10-11] MEDS: calcium acetate 667mg (PhosLO) capsule PO SCH (07:00)
[2024-10-11] MEDS: heparin 1,000 units/ml 10ml inj HE ONE ×2 (09:27→09:28)
[2024-10-11 09:44] LABS: BASOPHILS % (AUTO) 0.7 % (0-1); EOSINOPHILS # (AUTO) 0.2 X10'3 (0-0.9); EOSINOPHILS % (AUTO) 2.5 % (0-6); HEMATOCRIT 30.9 % (42.0-52.0); HEMOGLOBIN 10.3 g/dl (14.0-17.9); LYMPHOCYTES # (AUTO) 1.1 X10'3 (1.1-4.8); LYMPHOCYTES % (AUTO) 18.3 % (21-51); MEAN CORPUSCULAR HEMOGLOBIN 26.7 PG (27.0-31.0); MEAN CORPUSCULAR HGB CONC 33.4 g/dL (33.0-36.5); MEAN PLATELET VOLUME 7.1 FL (7.4-10.4); MONOCYTES # (AUTO) 0.3 X10'3 (0-0.9); MONOCYTES % (AUTO) 5.4 % (2-12); NEUTROPHILS # (AUTO) 4.5 X10'3 (1.8-7.7); NEUTROPHILS % (AUTO) 73.1 % (42-75); PLATELET COUNT 271 X10'3 (140-440); RED BLOOD COUNT 3.87 X10'6 (4.70-6.10); RED CELL DISTRIBUTION WIDTH 13.8 % (11.5-14.5); WHITE BLOOD COUNT 6.1 X10'3 (4.5-11.0)
[2024-10-11 10:04] LABS: ALBUMIN 3.2 G/DL (3.4-5.0); ANION GAP 14 (8-16); BLOOD UREA NITROGEN 45 MG/DL (7-18); BUN/CREATININE RATIO 7.1 (10.0-20.0); CALCIUM 8.9 MG/DL (8.5-10.1); CHLORIDE 97 MMOL/L (99-107); CREATININE 6.38 MG/DL (0.60-1.10); GLUCOSE 107 MG/DL (70-104); POTASSIUM 4.3 MMOL/L (3.5-5.1); SODIUM 133 MMOL/L (135-145); TOTAL CARBON DIOXIDE 22.4 MMOL/L (24-32); eCRCL 15 ML/MIN; eGFR 10 ML/MIN
--- NOTE | 2024-10-11 18:26 | DISCHARGE SUMMARY-Residence ---
Discharge Summary Providers to CC Resident Creating Document: REGINE JULIO RES ~ Discharge Summary Admission Diagnosis: Acute renal failure on CKD , hypertensive emergency Hospital Course DATE OF ADMISSION: 09/30/2024 DATE OF DISCHARGE: 10/11/2024 Hospital course same as mentioned in the discharge summary. Discharge Diagnosis\\Comment: EDGARDO on CKD likely secondary to ATN, creatinine 11.06 (creatinine range in 2023: 1.9-2.3-2.1-2.2 -2.5) New onset hemodialysis - 1st episode of hemodialysis on 10/01/2024 Elevated anion gap metabolic acidosis Hyperphosphatemia Hypertensive emergency POA, resolved Blood pressure soft, DC blood pressure medications Acute on Chronic CHF preserved EF History of hypertension History of CKD Operations\\Procedures: C Hemodialysis Consultants: Dr. Edi Ahn, Dr. Cain Complications: None Condition on DC: Stable Discontinued Medications: Carvedilol (Carvedilol) 25 Mg Tablet 1 TAB PO BID Furosemide (Furosemide) 20 Mg Tablet 1 TAB PO DAILY Losartan Potassium (Losartan Potassium) 25 Mg Tablet 1 TAB PO DAILY Discharge Summary: As per HPI: 39-year-old male with history of congestive heart failure, CKD, hypertension is transferred to the ED from [facility] for higher level of care and management for hypertension, EDGARDO on CKD and CHF. He presented to the ED at [facility] with chief complaints of worsening shortness of breath, weakness in the fingers and feet since the past three days. He has associated chills, vomiting and dizziness. Denies significant chest pains, diaphoresis, nasal congestion, expectoration, palpitations. He has been having the above symptoms (shortness of breath) for the past eight months. Eight months ago he was diagnosed to have pneumonia at [facility], later seen at [place] where he was diagnosed to have CHF and chronic kidney disease with "15% kidney function". He states that he has been taking Lasix 40 t.i.d. since then and has been transitioned to Lasix 20 daily since the last one month. He does swell up with significant edema in the bilateral lower extremity, states he has lost significant amount of weight with Lasix. He is able to make good amount of urine. 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 He is also hypertensive and takes Coreg. Was also taking losartan, but was discontinued and he developed neck swelling. Stopped smoking six years ago, does not drink alcohol no recreational drug use. Had an angiogram done eight months ago probably secondary to heart failure and was clean. Hospital course: On further evaluation he had elevated BUN and creatinine BUN 74 creatinine 11.06 GFR five and anion gap of 19. He was saturating well on room air started bicarb drip at 100 mL/hour. Ordered urine spot studies and renal ultrasound. Nephrology was consulted. Renal ultrasound showed echogenic renal cortices with mild renal disease. Echo was done which showed an EF of 50- 55% and RVSP of 51. His creatinine was 11.2 with GFR five. Consulted Before [facility]. Also got records from [facility] to understand a baseline of his creatinine. His creatinine at that time in June 03, 2019 17 July 2019 16 November 2019 16 January 2024 was in the range 1.9-2.3-2.1-2.2-2.5. He has started his 1st episode of hemodialysis on 10/01/2024. Doppler of the kidneys showed slightly elevated left renal artery restrictive induced could represent renal artery stenosis. Recommended CT angio of the abdomen but could not be done because of EDGARDO. Nephrology also recommended outpatient kidney biopsy. He was dialyzed per Nephrology. On presentation he also had high blood pressure and was started on a nicardipine drip. The drip was discontinued eventually and was transitioned to home medications Coreg and losartan. But his blood pressure is post dialysis has been soft and hence discontinued blood pressure medications. He has been stable without blood pressure medications blood pressure today 108/75. He has history of chronic CHF held mild crackles on presentation with post dialysis he has been clear. Fluids and Lasix were managed per Nephrology. Fluid restriction to 1.5 L a day. Was started on a renal diet. He has been medically stable and has been cleared for discharge, who was awaiting a chair for dialysis at [facility]. It took some time for insurance authorization, eventually he got approved and he has a time and chair for dialysis at [facility] on Sunday October 13, 2024. PT worked with him and cleared him for discharge. His hospital course is uncomplicated he is hemodynamically stable on the day of discharge and his physical exam is as follows: General: Awake and Alert, no acute distress. Currently Saturating well on room air. HEENT: Conjunctiva pink, Sclera clear, Mucus Membranes moist. Neck: Supple without masses and tenderness. Chest: Right-sided TDC in place. Resp: Unlabored. Equal breath sounds bilaterally Heart: Regular rhythm, normal S1 and S2, no rub, murmur or gallop. Abdomen: Abdomen distended and tight, normal bowel sounds x4. No guarding or rigidity. Extremities: Normal ROM, no swelling, nontender. No cyanosis,clubbing or edema. 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 Skin: Warm and Dry. Discharge medications can be found above. Patient is being discharged with the following advice: [facility] HAS A CHAIR TIME FOR PATIENT Friday. PATIENT IS TO ARRIVE AT [facility] ([address], [place] [address])AT 1355. FOLLOW UP WITH PCP WITHIN A WEEK, RECOMMENDED TO DISCUSS MEDICATIONS WITH REGIONAL BRANCH MANAGER, WE HAVE STOPPED YOUR BP MEDS YOU HAVENT BEEN NEEDING THEM DURING THE STAY IN THE [facility]ITAL. MONITOR BP AND DISCUSS WITH REGIONAL BRANCH MANAGER. IF CONDITION WORSENS CALL 911 OR GO TO THE NEAREST ER IMMEDIATELY. Laboratory Tests Test 10/10/24 05:17 10/11/24 09:36 White Blood Count 10.2 X10'3 6.1 X10'3 Red Blood Count 3.64 X10'6 3.87 X10'6 Hemoglobin 9.9 g/dl 10.3 g/dl Hematocrit 29.5 % 30.9 % Mean Corpuscular Volume 80.8 FL 80.0 FL Mean Corpuscular Hemoglobin 27.2 PG 26.7 PG Mean Corpuscular Hemoglobin Concent 33.7 g/dL 33.4 g/dL Red Cell Distribution Width 13.5 % 13.8 % Platelet Count 248 X10'3 271 X10'3 Mean Platelet Volume 7.4 FL 7.1 FL Neutrophils (%) (Auto) 63.5 % 73.1 % Lymphocytes (%) (Auto) 25.3 % 18.3 % Monocytes (%) (Auto) 7.6 % 5.4 % Eosinophils (%) (Auto) 3.0 % 2.5 % Basophils (%) (Auto) 0.6 % 0.7 % Neutrophils # (Auto) 6.5 X10'3 4.5 X10'3 Lymphocytes # (Auto) 2.6 X10'3 1.1 X10'3 Monocytes # (Auto) 0.8 X10'3 0.3 X10'3 Eosinophils # (Auto) 0.3 X10'3 0.2 X10'3 Basophils # (Auto) 0.1 X10'3 0.0 X10'3 CBC Comment Sodium Level 132 MMOL/L 133 MMOL/L Potassium Level 4.6 MMOL/L 4.3 MMOL/L Chloride Level 95 MMOL/L 97 MMOL/L Carbon Dioxide Level 20.9 MMOL/L 22.4 MMOL/L Anion Gap 16 14 Blood Urea Nitrogen 67 MG/DL 45 MG/DL Creatinine 9.79 MG/DL 6.38 MG/DL Estimated GFR/1.73 m2 6 ML/MIN 10 ML/MIN BUN/Creatinine Ratio 6.8 7.1 Glucose Level 111 MG/DL 107 MG/DL Calcium Level 8.7 MG/DL 8.9 MG/DL Albumin 3.0 G/DL 3.2 G/DL Chemistry Comments *Problems/Diagnosis: (1) EDGARDO (acute kidney injury) (2) ESRD (end stage renal disease) Total Time Spent on D/C: > 30 Minutes Date of Service: Oct 11, 2024 Billing Provider: BREONNA BARTON MD, ELIZABETH, RES Oct 11, 2024 18:16
== END 2024-10-11 12:30 | disposition home or self-care (01) | DRG 469 ==
LOC: ER 15:47 → ED HOLD 17:14 → PCU 3S 21:15 → SUR 3N 10-06 15:32
PROVIDERS: ADMIT Internal Medicine; ATTEND Internal Medicine
PROC: 0JH63XZ Insertion of Tunneled Vascular Access Device into Chest Subcutaneous Tissue and Fascia, Percutaneous Approach (ICD-10-PCS; principal; 2024-10-01)
PROC: 02HV33Z Insertion of Infusion Device into Superior Vena Cava, Percutaneous Approach (ICD-10-PCS; 2024-10-01)
PROC: B548ZZA Ultrasonography of Superior Vena Cava, Guidance (ICD-10-PCS; 2024-10-01)
PROC: 5A1D70Z Performance of Urinary Filtration, Intermittent, Less than 6 Hours Per Day (ICD-10-PCS; 2024-10-01)
PROC: 5A1D70Z Performance of Urinary Filtration, Intermittent, Less than 6 Hours Per Day (ICD-10-PCS; 2024-10-02)
PROC: 5A1D70Z Performance of Urinary Filtration, Intermittent, Less than 6 Hours Per Day (ICD-10-PCS; 2024-10-04)
PROC: 5A1D70Z Performance of Urinary Filtration, Intermittent, Less than 6 Hours Per Day (ICD-10-PCS; 2024-10-06)
PROC: 5A1D70Z Performance of Urinary Filtration, Intermittent, Less than 6 Hours Per Day (ICD-10-PCS; 2024-10-08)
DX: N17.0 Acute kidney failure with tubular necrosis (principal); I50.33 Acute on chronic diastolic (congestive) heart failure; E83.39 Other disorders of phosphorus metabolism; E87.20 Acidosis, unspecified; I13.2 Hypertensive heart and chronic kidney disease with heart failure and with stage 5 chronic kidney disease, or end stage renal disease; I16.1 Hypertensive emergency; N18.6 End stage renal disease; Z79.899 Other long term (current) drug therapy
CPT/HCPCS: 36415; 36558; 36600; 71045; 76770; 76937; 77001; 80048; 80053; 80305; 81001; 82570; 82595; 82728; 82803; 83036; 83540; 83550; 83615; 83880; 83970; 84100; 84133; 84156; 84300; 84439; 84443; 84484; 85018; 85025; 85651; 86038; 86060; 86140; 86160; 86256; 86703; 86704; 86706; 87081; 87207; 87340; 93005; 93306; 93975; 96361; 96365; 97161; 97530; 99285; A4620; A6258; A9270; C1750; C1769; C1894; E1594; G0257; G0378; J0360; J1644; J2150; J3490; J7030; J7070; Q4081